=== PATIENT | male | born 1945 | race Caucasian/White ===

== ENCOUNTER 2020-12-01 03:31 | Inpatient (IN) ==
[2020-12-01 04:51] LABS: Albumin Level 3.8 gm/dl (3.4-5.0); Calcium 9.6 mg/dl (8.5-10.1); Creatinine Clr Calc Pharmacy 71.5 ml/min; Est GFR (African American) 79.5; Est GFR (Non-African American) 68.6; Potassium 3.6 mmol/L (3.5-5.1)
[2020-12-01 04:55] LABS: Partial Thromboplastin Time 26.9 Seconds (21.0-31.0); Prothrombin Time 9.8 Seconds (9.0-12.0)
[2020-12-01 04:59] LABS: Albumin Globulin Ratio 1.1 (0.9-2); Bilirubin,Total 0.9 mg/dl (0.2-1); Globulin 3.6 gm/dl (2.5-4.0); Total Protein 7.4 gm/dl (6.4-8.2); Troponin I 0.067 ng/ml (0-0.045)
[2020-12-01 05:03] LABS: Basophils # (auto) 0.02 K/uL (0-0.2); Basophils % (auto) 0.4 %; Eosinophils # (auto) 0.08 K/uL (0-0.5); Eosinophils % (auto) 1.4 %; Hemoglobin 16.2 g/dL (14.0-18.0); Immature Granulocytes # (auto) 0.11 K/uL (0.00-0.02); Immature Granulocytes % (auto) 1.9 %; Lymphocytes # (auto) 1.11 K/uL (1.2-3.4); Lymphocytes % (auto) 19.6 %; Mean Corpuscular Hemoglobin 29.2 pg (25-34); Mean Corpuscular Hgb Conc 34.5 g/dL (32-36); Mean Corpuscular Volume 84.8 fL (80-100); Mean Platelet Volume 12.2 fL (7.4-10.4); Monocytes # (auto) 0.46 K/uL (0.11-0.59); Monocytes % (auto) 8.1 %; Neutrophils # (auto) 3.89 K/uL (1.4-6.5); Neutrophils % (auto) 68.6 %; Platelet Count 101 K/uL (130-400); Platelet Estimate Decreased (Normal); Polychromasia 1+; RDW Coefficient of Variation 12.9 % (11.5-14.5); RDW Standard Deviation 39.9 fL (36.4-46.3); Red Blood Count 5.54 M/uL (4.7-6.1); White Blood Count 5.67 K/uL (4.8-10.8)
--- NOTE | 2020-12-01 06:32 | Emergency Department Note ---
Impression & Plan Atrial fibrillation with rapid ventricular response, Elevated troponin ED Provider Note NAME: VIRGINIE LU AGE: 75 SEX: M ARRIVES VIA: Walk-In INFORMANT: Patient ED PROVIDER(S): Noemi Gorman DO CHIEF COMPLAINT: Palpitation PLAN: Disposition: Admitted to the [facility] service Condition: Good MEDICAL DECISION MAKING: This is a 75-year-old male patient who presents to the emergency department after having an episode of palpitations/tachycardia that would not resolve. Patient describes very similar episode 2 to 3 months ago that resolved on its own. Upon presentation to the emergency department, patient's heart rate was 121. It broke on its own to 65. However, the patient does have an elevated troponin. I discussed the case with Dr. Carlson and he will evaluate the patient for further inpatient care. Triage Nursing notes reviewed and agree them. Additional history obtained from the patient's who is at the bedside Prior medical records reviewed in Epic Vital Signs: reviewed and remarkable for tachycardia Differential diagnosis: Electrolyte abnormality, thyroid dysfunction, STEMI, cardiac dysrhythmia Diagnostics interpreted by me: ECG: Atrial fibrillation at a rate of 121 with rapid ventricular response. T wave inversion in the inferior leads and lateral leads with no obvious ectopy. I was able to obtain documentation in the [facility] system stating that the patient has a longstanding history of T wave inversion. We have no previous EKGs here at [facility]. Repeat EKG after the rapid A. fib broke: Normal sinus rhythm at a rate of 65 with persistent T wave inversion in leads V2, V3, V4, V5, V6, I and aVL Cardiac Monitoring: Normal sinus rhythm at a rate of 64 Laboratory studies: See below Imaging studies: As per my interpretation Portable chest x-ray: No acute pulmonary infiltrates or pleural effusions; no cardiomegaly HPI: 75/M arrives for evaluation of arrhythmia. Patient describes around 10 PM this evening he got up to urinate and could feel his heart beating rapidly. He then tried to go back to bed but continued to get up very frequently to urinate. The patient had a very similar episode 2 to 3 months ago around 11 PM at night where he also had frequent urination and felt his heart beating fast. That episode previously resolved on its own. This episode was not resolving. He had no associated chest pain, diaphoresis or dizziness. ROS: See above HPI for pertinent positives & negatives. A total of 10 systems reviewed and were otherwise negative. PAST MEDICAL HISTORY:Non-Hodgkin's lymphoma in remission; hypertension PAST SURGICAL HISTORY:See Below FAMILY HISTORY:See Below SOCIAL HISTORY:Occasionally drinks alcohol; lives with his HOME MEDICATIONS:See list ALLERGIES:See list VITALS:See Below PHYSICAL EXAMINATION: HEENT: Head - normocephalic and atraumatic Pupils are equal, round, and reactive to light. Extraocular eye muscles are intact, and sclera are anicteric. Nose - moist nasal mucosa without discharge. Mouth - moist buccal mucosa. Oropharynx is nonerythematous and there is no tonsillar exudate or edema noted. Neck: Supple; no JVD, nuchal rigidity, cervical lymphadenopathy, or auscultated bruits. Heart: Regular rate and rhythm. There is a normal S1 and S2 with no murmurs, clicks, or gallops appreciated. Lungs: Clear to auscultation bilaterally with no wheezes, rales, or rhonchi. Abdomen: Soft, completely nontender, nondistended, with good bowel sounds. There are no palpable pulsatile masses or hepatosplenomegaly. There is no guarding, rigidity, or rebound noted. Extremities: No evidence of cyanosis, clubbing, or edema. There are easily palpable peripheral pulses. Skin: warm and dry with good turgor and no rashes. ED COURSE: Times/Reassessments: 0415: Patient was evaluated in room C3. A complete history and physical was performed. An order was placed for continuous cardiac monitoring. The patient was in a atrial fibrillation with a rapid ventricular response at a rate of 124. A twelve-lead EKG was obtained. IV lock was initiated and labs were drawn as above. Patient had a chest x-ray as described above. I did obtain records from the [facility] system. The patient's A. fib broke on its own. 0550: I reevaluated the patient at this time. He remains comfortable. He remains in a normal sinus rhythm. I reviewed the results of the labs with him along with the chest x-ray results. I explained to the patient that he does have an elevated troponin and will require further inpatient care. Discussed the case with the [facility] hospitalist. Noemi Gorman DO Past Med/Surg History Medical History (Updated 12/01/20 @ 18:51 by Noemi Gorman DO) Hx of lymphoma, non-Hodgkins Hyperlipidemia Hypertension Osteoarthritis Peripheral neuropathy Surgical History H/O hand surgery RT HAND RING FINGER TRIGGER RELEASE History of eye surgery LEFT (MACULAR PUCKER REPAIR) History of left cataract surgery Ozan teeth removed Family History Other No significant family history Social History Smoking Status: Light tobacco smoker Cigarettes Per Day: 1-2 CIGARS PER WEEK; Second Hand Exposure: Yes (socially); Do You Dip or Chew Tobacco: No; Tobacco Cessation Education Requested by Patient: No Hx Alcohol Use: Yes Alcohol type: beer, wine and hard liquor Hx Substance Use: No Preferred Language: Danish Communication Ability: Effective Stove Mechanic Required: No Beliefs That Will Affect Care: None Current Living Situation: Spouse Other Information That Helps Us Care for You: No Feels Safe at Home: Yes Safety Concerns: Feels Safe At This Time Assistive Devices: Glasses Allergies Allergies Allergy/AdvReac Type Severity Reaction Status Date / Time rituximab [From Rituxan] Allergy Intermediate "muscles Verified 12/01/20 03:46 got tight" Home Meds Home Medications Medication Instructions Recorded Confirmed Centrum Silver Men 1 tab PO QAM 03/27/20 12/01/20 Imbruvica 280 mg PO QAM 03/27/20 12/01/20 cholecalciferol (vitamin D3) 50 mcg PO QAM 03/27/20 12/01/20 [Vitamin D3] lisinopril-hydrochlorothiazide 1 tab PO QAM 03/27/20 12/01/20 simvastatin 20 mg PO HS 03/27/20 12/01/20 celecoxib [Celebrex] 200 mg PO QAM 04/30/20 12/01/20 Results & Data (ED) Vital Signs Vital Signs - 24 hr 12/01/20 03:35 12/01/20 03:45 12/01/20 04:15 Temperature 36.0 C L Temperature Source Oral Pulse Rate 120 H 57 L Pulse Rate from SpO2 Sensor 57 L Respiratory Rate 16 25 H Blood Pressure 208/119 H 156/76 H Blood Pressure Mean 148 102 Pulse Oximetry 96 95 Oxygen Delivery Method Room Air Room Air Sepsis Recent Fever Within 48 Hours No Sepsis New/Unexplained Change in Mental Status No Sepsis Action Taken by Nursing No Action Required 12/01/20 06:30 12/01/20 07:00 Temperature Temperature Source Pulse Rate 55 L 58 L Pulse Rate from SpO2 Sensor 54 L 58 L Respiratory Rate 14 13 Blood Pressure 158/76 H 175/90 H Blood Pressure Mean 103 118 Pulse Oximetry 93 96 Oxygen Delivery Method Sepsis Recent Fever Within 48 Hours Sepsis New/Unexplained Change in Mental Status Sepsis Action Taken by Nursing Laboratory Data Result diagrams: 12/01/20 04:00 12/01/20 04:00 Lab Results 12/01/20 12/01/20 12/01/20 Range/Units 04:00 04:00 04:00 WBC 5.67 (4.8-10.8) K/uL RBC 5.54 (4.7-6.1) M/uL Hgb 16.2 (14.0-18.0) g/dL Hct 47.0 (42-52) % MCV 84.8 (80-100) fL MCH 29.2 (25-34) pg MCHC 34.5 (32-36) g/dL RDW Std Deviation 39.9 (36.4-46.3) fL RDW Coeff of Michael 12.9 (11.5-14.5) % Plt Count 101 L (130-400) K/uL MPV 12.2 H (7.4-10.4) fL Immature Gran % (Auto) 1.9 % Neut % (Auto) 68.6 % Lymph % (Auto) 19.6 % [place] % (Auto) 8.1 % Eos % (Auto) 1.4 % Baso % (Auto) 0.4 % Neut # (Auto) 3.89 (1.4-6.5) K/uL Lymph # (Auto) 1.11 L (1.2-3.4) K/uL [place] # (Auto) 0.46 (0.11-0.59) K/uL Eos # (Auto) 0.08 (0-0.5) K/uL Baso # (Auto) 0.02 (0-0.2) K/uL Immature Gran # (Auto) 0.11 H (0.00-0.02) K/uL Platelet Estimate Decreased L (Normal) Polychromasia 1+ PT 9.8 (9.0-12.0) Seconds INR 1.0 (0.9-1.1) APTT 26.9 (21.0-31.0) Seconds PTT Ratio 1.0 Sodium 143 (136-145) mmol/L Potassium 3.6 (3.5-5.1) mmol/L Chloride 110 H (98-107) mmol/L Carbon Dioxide 25 (21-32) mmol/L Anion Gap 8.0 (3-11) BUN 16 (7-18) mg/dl Creatinine 1.05 (0.6-1.4) mg/dl Est Cr Clr Drug Dosing 71.5 ml/min Est GFR ( Amer) 79.5 Est GFR (Non-Af Amer) 68.6 BUN/Creatinine Ratio 15.0 (10-20) Glucose 119 H (70-99) mg/dl Calcium 9.6 (8.5-10.1) mg/dl Total Bilirubin 0.9 (0.2-1) mg/dl AST 20 (15-37) U/L ALT 28 (12-78) U/L Alkaline Phosphatase 105 (45-117) U/L Troponin I 0.067 H* (0-0.045) ng/ml Total Protein 7.4 (6.4-8.2) gm/dl Albumin 3.8 (3.4-5.0) gm/dl Globulin 3.6 (2.5-4.0) gm/dl Albumin/Globulin Ratio 1.1 (0.9-2) COVID-19 Eval Order SARS-CoV-2, RNA, NAAT (NEGATIVE) 12/01/20 12/01/20 Range/Units 05:55 05:55 WBC (4.8-10.8) K/uL RBC (4.7-6.1) M/uL Hgb (14.0-18.0) g/dL Hct (42-52) % MCV (80-100) fL MCH (25-34) pg MCHC (32-36) g/dL RDW Std Deviation (36.4-46.3) fL RDW Coeff of Michael (11.5-14.5) % Plt Count (130-400) K/uL MPV (7.4-10.4) fL Immature Gran % (Auto) % Neut % (Auto) % Lymph % (Auto) % [place] % (Auto) % Eos % (Auto) % Baso % (Auto) % Neut # (Auto) (1.4-6.5) K/uL Lymph # (Auto) (1.2-3.4) K/uL [place] # (Auto) (0.11-0.59) K/uL Eos # (Auto) (0-0.5) K/uL Baso # (Auto) (0-0.2) K/uL Immature Gran # (Auto) (0.00-0.02) K/uL Platelet Estimate (Normal) Polychromasia PT (9.0-12.0) Seconds INR (0.9-1.1) APTT (21.0-31.0) Seconds PTT Ratio Sodium (136-145) mmol/L Potassium (3.5-5.1) mmol/L Chloride (98-107) mmol/L Carbon Dioxide (21-32) mmol/L Anion Gap (3-11) BUN (7-18) mg/dl Creatinine (0.6-1.4) mg/dl Est Cr Clr Drug Dosing ml/min Est GFR ( Amer) Est GFR (Non-Af Amer) BUN/Creatinine Ratio (10-20) Glucose (70-99) mg/dl Calcium (8.5-10.1) mg/dl Total Bilirubin (0.2-1) mg/dl AST (15-37) U/L ALT (12-78) U/L Alkaline Phosphatase (45-117) U/L Troponin I (0-0.045) ng/ml Total Protein (6.4-8.2) gm/dl Albumin (3.4-5.0) gm/dl Globulin (2.5-4.0) gm/dl Albumin/Globulin Ratio (0.9-2) COVID-19 Eval Order Covid19 [facility] SARS-CoV-2, RNA, NAAT NEGATIVE (NEGATIVE) Administered Medications Amlodipine Besylate (Amlodipine Besylate 5 Mg Tab) 5 mg PO QAM PARAMJIT Stop: 12/31/20 16:29 Last Admin: 12/01/20 18:06 Dose: 5 mg Documented by: [id number] Apixaban (Apixaban 5 Mg Tablet) 5 mg PO BID [facility] Stop: 12/31/20 13:59 Last Admin: 12/01/20 14:35 Dose: 5 mg Documented by: [id number] Lisinopril/HCTZ (Lisinopril/Hctz 20/25mg 1 Tab) 1 tab PO [place] Stop: 12/31/20 08:59 Last Admin: 12/01/20 09:57 Dose: 1 tab Documented by: [id number] Hydralazine HCl (Hydralazine Hcl 20 Mg/Ml Vial) 5 mg IV Q4H PRN PRN Reason: for SBP>170 Stop: 12/31/20 16:15 Last Admin: 12/01/20 16:43 Dose: 5 mg Documented by: [id number] Metoprolol Succinate (Metoprolol Succ 25mg Ext Rel Tab) 25 mg PO [place] Stop: 12/31/20 12:29 Last Admin: 12/01/20 13:11 Dose: Not Given Documented by: [id number] Multivitamins/Minerals (Cerovite Adv Formula Tab) 1 tab PO [facility] Stop: 12/31/20 08:59 Last Admin: 12/01/20 09:57 Dose: 1 tab Documented by: [id number] Vitamin D (Cholecalciferol 1,000 Units 25 Mcg Tab) 2,000 units PO [facility] Stop: 12/31/20 08:59 Last Admin: 12/01/20 09:57 Dose: 2,000 units Documented by: [id number] Discontinued Medications Heparin Sodium/Dextrose (Heparin Sodium/Dextrose) 25,000 units in 500 mls @ 20 mls/hr IV .Q24H [facility]; Protocol Stop: 12/31/20 08:29 Last Titration: 12/01/20 12:30 Dose: 0 units/hr, 0 mls/hr Documented by: [id number] Cosigned by: [id number] Admin: 12/01/20 08:46 Dose: 1,000 units/hr, 20 mls/hr Documented by: [id number] Cosigned by: [id number] Influenza Virus Vaccine (Influenza Vaccine High Dose 65+ 0.7 Ml Syr) 0.7 ml IM .ONCE ONE Stop: 12/01/20 14:31 Last Admin: 12/01/20 14:39 Dose: Not Given Documented by: [id number] Miscellaneous (Ibrutinib [Imbruvica] 140 Mg: Order Awaiting Action) 1 ea N/A QS PARAMJIT Stop: 12/31/20 15:59 Last Admin: 12/01/20 15:44 Dose: Not Given Documented by: [id number] Pneumococcal Polyvalent Vaccine (Pneumococcal Polysaccharide Vaccine 25mcg/0.5ml Vial/Syr) 25 mcg IM .ONCE ONE Stop: 12/01/20 14:31 Last Admin: 12/01/20 14:39 Dose: Not Given Documented by: [id number] Potassium Chloride (Potassium Chloride Crtab 20 Meq Tabcr) 40 meq PO NOW STA Stop: 12/01/20 08:05 Last Admin: 12/01/20 08:46 Dose: 40 meq Documented by: [id number] Discharge Plan Visit Data Chief Complaint: Arrhythmia/Palpitations Stated Complaint: HEART FLUTTER ED Provider: Noemi Gorman Discharge Problem: Atrial fibrillation with rapid ventricular response, Elevated troponin Patient Disposition: Admitted As Inpatient Discharge Instructions Interventions: ED Discharge Assessment Last Done: 12/01/20 07:24
[2020-12-01] MEDS ORDERED: METOPROLOL TARTRATE 1 MG/ML VIAL IV PRN (07:57)
[2020-12-01] MEDS ORDERED: NITROGLYCERIN SL 0.4 MG/TAB TAB SL PRN (07:57)
[2020-12-01] MEDS ORDERED: ACETAMINOPHEN 325 MG TAB PO PRN (07:57)
[2020-12-01] MEDS ORDERED: POTASSIUM CHLORIDE CRTAB 20 MEQ TABCR PO STA (08:04)
[2020-12-01] MEDS ORDERED: HEPARIN SODIUM/DEXTROSE 25,000 UNITS/500 ML BAG IV SCH (08:30)
[2020-12-01] MEDS ORDERED: Heparin IV Adult Wt-Based Low-Dose *NO* Bolus Protocol IV SCH (08:30)
--- NOTE | 2020-12-01 08:44 | XRay Report ---
XR chest 1V portable HISTORY: Atypical Chest Pain COMPARISON: Chest 12/14/2014. FINDINGS: The lungs are clear. Cardiac silhouette is normal in size. No pleural effusions. No pneumot horax. IMPRESSION: No acute process. ACT 112: Negative or not required by law. Electronically signed by: Too Whitney M.D. 12/01/2020 8:42 AM
[2020-12-01] MEDS: CHOLECALCIFEROL 1,000 UNITS 25 MCG TAB PO SCH (09:57)
[2020-12-01] MEDS: LISINOPRIL/HCTZ 20/25MG 1 TAB PO SCH (09:57)
[2020-12-01] MEDS: CEROVITE ADV FORMULA TAB PO SCH (09:57)
--- NOTE | 2020-12-01 10:11 | History and Physical Report ---
DATE OF ADMISSION: 12/01/2020 CHIEF COMPLAINT: Rapid AFib. HISTORY OF PRESENT ILLNESS: This is a 75-year-old male with past medical history significant for hyperlipidemia, hypertension, prolonged QT syndrome, mantle cell lymphoma in remission, presents with palpitations. The patient says yesterday he went with some of his friends for fishing plan and when he got home at 10:00 pm when he was watching TV, felt funny feeling in the chest and palpitations. It happened about one month ago. At that time, it lasted for 1 hour and resolved itself after drinking Gatorade. He tried to do the same thing last night, but it did not resolve. He tried to go to bed at 12:00, but it was not getting better, still feeling the same, so he came to the ER and found to have rapid atrial fibrillation. During all this process, he never had any chest pain or shortness of breath. Denies any cough, fever or chills. No headache, no blurred vision, no earache, no runny nose, no sore throat, no nausea, no abdominal pain. Normal bowel and bladder movements. Denies any hematuria. Denies any bloody stools or black stools. No swelling in the legs, no rash. The patient states he is active. 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 He is currently converted to sinus rhythm. ALLERGIES: RITUXIMAB. PAST MEDICAL HISTORY: As mentioned above. PAST SURGICAL HISTORY: Stress echo. MEDICATIONS: Currently, the patient is on celecoxib 200 mg p.o. a.m., Centrum Silver 1 tablet p.o. a.m., vitamin D 50 mcg p.o. a.m., Imbruvica 280 mg p.o. a.m., lisinopril/hydrochlorothiazide 20/25 mg 1 tablet daily. FAMILY HISTORY: Significant for father had Alzheimer disease. Mother has hypertension, diabetes. Maternal grandmother had cancer, paternal grandfather has heart disorder. SOCIAL HISTORY: , cigars once or twice a week. Alcohol 1-3 drinks a week. No drug use. REVIEW OF SYMPTOMS: As per HPI. Rest of review of symptoms negative. PHYSICAL EXAMINATION: GENERAL: The patient is moderate build, not in acute distress. VITAL SIGNS: Temperature 36, pulse 100 respiratory rate 20s, blood pressure 156/76, oxygen 95% on room air. HEENT: Pupils equal, round, reactive to light. Oral mucosa moist. NECK: No JVD. No neck masses. CARDIOVASCULAR: S1, S2 heard, regular rate and rhythm, no murmur, no gallop. RESPIRATORY SYSTEM: Normal AP diameter. No accessory muscle use. No wheezing, no crackles. ABDOMEN: Soft, bowel sounds present, nontender. No distention. CENTRAL NERVOUS SYSTEM: Cranial nerves II-XII grossly intact. Nonfocal. EXTREMITIES: No edema, no erythema. LABORATORY DATA: WBC 5.6, hemoglobin 16.2, hematocrit 47, platelets 101, PT 10.8, INR 1, APTT 26.9. Sodium 143, potassium 3.6, chloride 110, bicarbonate 25, BUN 16, creatinine 1.05, serum glucose 119, calcium 9.6, total bilirubin 0.9, AST 20, ALT 28, alkaline phosphatase 105. Troponin I 0.06. SARS-CoV-2 negative. Chest x-ray, no acute findings. EKG: Initial EKG show rapid AFib with rate of 121, moderate LVH criteria Nonspecific ST-T abnormalities. Repeat EKG shows normal sinus rhythm, rate of 65, LVH. QTC at 484, T-wave inversions in lateral leads. ASSESSMENT AND PLAN: This is a 75-year-old male who presents with rapid atrial fibrillation. 1. Rapid atrial fibrillation, new onset. Prior episode 1 month ago which resolved on its own. Currently converted to sinus rhythm. T wave inversions in lateral leads seems to be chronic. We will place him on IV Lopressor p.r.n. and low dose IV heparin. Serial enzymes and echocardiogram. We will keep him n.p.o. until seen by Cardiology 2,.Mild elevation of troponin, could be demand ischemia, some EKG changes. We will follow serial enzymes. Started him on aspirin and we will check lipid profile. We will follow echocardiogram and await cardiac input. Monitor in the tele floor. 2. History of hypertension. Continue his lisinopril/hydrochlorothiazide. We will monitor blood pressure.Iv lopressor prn. 3. History of hyperlipidemia. Continue statin. 4. History of mantle cell lymphoma, seems to be in remission. Follows with Hematology/Oncology on Imbruvica. 5. Thrombocytopenia, seems to be chronic. We will follow. The platelets are 101. Follow the repeat labs. 6. History of prolonged QT syndrome. We will follow the EKGs, Avoid Qt prolonging drugs. 7. Deep venous thrombosis prophylaxis, on IV heparin. DISPOSITION: Closely monitor in tele floor. Level 1 full code. Expect discharge home and follow with family doctor and cardiology. Social service to help with discharge planning. JUAN CARLOS
--- NOTE | 2020-12-01 10:15 | Electrocardiogram Report ---
Test Reason : Blood Pressure : / mmHG Vent. Rate : 121 BPM Atrial Rate : 110 BPM P-R Int : 000 ms QRS Dur : 106 ms QT Int : 334 ms P-R-T Axes : 000 -03 181 degrees QTc Int : 474 ms Atrial fibrillation with rapid ventricular response Voltage criteria for left ventricular hypertrophy Abnormal ECG No previous ECGs available Confirmed by Tom Fragoso ([id number]) on 12/01/2020 10:15:25 AM Referred By: REFERRED SELF Confirmed By:Tom Fragoso
--- NOTE | 2020-12-01 10:16 | Electrocardiogram Report ---
Test Reason : Blood Pressure : / mmHG Vent. Rate : 065 BPM Atrial Rate : 065 BPM P-R Int : 160 ms QRS Dur : 108 ms QT Int : 466 ms P-R-T Axes : 051 -06 167 degrees QTc Int : 484 ms Normal sinus rhythm Left ventricular hypertrophy with repolarization abnormality Marked ST/T changes consider anterolateral ischemia Prolonged QT Abnormal ECG When compared with ECG of 01-DEC-2020 03:49, (unconfirmed) Sinus rhythm has replaced Atrial fibrillation Vent. rate has decreased BY 56 BPM Confirmed by Tom Fragoso ([id number]) on 12/01/2020 10:16:00 AM Referred By: REFERRED SELF Confirmed By:Tom Fragoso
[2020-12-01] MEDS: METOPROLOL SUCC 25MG EXT REL TAB PO SCH (13:11)
--- NOTE | 2020-12-01 13:26 | Cardiology Consultation ---
Date of Consultation December 01, 2020 Assessment & Plan (1) Atrial fibrillation with rapid ventricular response: (2) Elevated troponin: (3) HTN (hypertension): (4) Mantle cell lymphoma: (5) Thrombocytopenia: The pathophysiology and treatment options for atrial fibrillation were discussed with the patient at great lengths. He is converted to normal sinus rhythm spontaneously and currently feels great. I feel the most prudent course of action at this point will be started him on low-dose beta-ani and Eliquis anticoagulation. The pros, cons and alternatives were discussed with the patient and he is in agreement. Should he tolerate receiving his first doses that I believe he would be able to be discharged later today. My office will call to arrange follow-up as an outpatient. His troponin level is slightly elevated but this could easily be explained by his A. fib with RVR. No wall motion abnormalities on echocardiogram and no ischemic symptoms. We will obtain a third troponin and should to be trending down it would be okay to discharge from a cardiac standpoint. History of Present Illness Reason for Consultation: new onset afib Requesting Physician: Dr. Carlson Attending Physician: Ralph Benson MD History of Present Illness It was my pleasure to see Mr. Zheng in cardiac consultation today December 01, 2020. He is a very pleasant and active 75-year-old gentleman who presented to [facility] early in the a.m. of 12/01/2020 with complaints of palpitations. He states he was out with friends last night and then after coming home sitting in a chair watching television he felt his heart started and a skipped beats in his chest. Otherwise, he states that he felt fine and did not experience any chest pain, shortness of breath, lightheadedness, dizziness or syncope. He drank some Gatorade thinking he might be dehydrated and then try to go to bed. The palpitations persisted throughout the night and approximately 3 AM he came to the emergency department for evaluation. Here he is found to be in atrial fibrillation with rapid ventricular response. He converted to sinus rhythm on his own in the emergency department. He was started on a heparin drip and admitted to telemetry. He is remained in sinus rhythm since presentation to telemetry and states that he currently feels great. 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 He is scheduled to go to [place] with friends flyfishing in a few weeks. Allergies Allergy/AdvReac Type Severity Reaction Status Date / Time rituximab [From Rituxan] Allergy Intermediate "muscles Verified 12/01/20 03:46 got tight" Home Medications Medication Instructions Recorded Confirmed Type Centrum Silver Men 1 tab PO QAM 03/27/20 12/01/20 History Imbruvica 280 mg PO QAM 03/27/20 12/01/20 History cholecalciferol (vitamin D3) 50 mcg PO QAM 03/27/20 12/01/20 History [Vitamin D3] lisinopril-hydrochlorothiazide 1 tab PO QAM 03/27/20 12/01/20 History simvastatin 20 mg PO HS 03/27/20 12/01/20 History celecoxib [Celebrex] 200 mg PO QAM 04/30/20 12/01/20 History Patient History Medical History (Updated 12/01/20 @ 13:23 by Tremayne Jiang DO) Hx of lymphoma, non-Hodgkins Hyperlipidemia Hypertension Osteoarthritis Peripheral neuropathy Surgical History H/O hand surgery RT HAND RING FINGER TRIGGER RELEASE History of eye surgery LEFT (MACULAR PUCKER REPAIR) History of left cataract surgery [place] teeth removed Family History Other No significant family history Social History Smoking Status: Light tobacco smoker Cigarettes Per Day: 1-2 CIGARS PER WEEK; Second Hand Exposure: Yes (socially); Do You Dip or Chew Tobacco: No; Tobacco Cessation Education Requested by Patient: No Hx Alcohol Use: Yes Alcohol type: beer, wine and hard liquor Hx Substance Use: No Preferred Language: Pakistani Communication Ability: Effective Support Representative Required: No Beliefs That Will Affect Care: None Current Living Situation: Spouse Other Information That Helps Us Care for You: No Feels Safe at Home: Yes Safety Concerns: Feels Safe At This Time Assistive Devices: Glasses Review of Systems Review of Systems: All systems reviewed & are unremarkable except as noted in HPI & below Physical Exam Physical Exam: General: Awake, alert and oriented x 3. No acute distress. HEENT: Normocephalic, atraumatic. Pupils equal, round and reactive to light and accommodation. Extraocular muscles are intact. Anicteric sclera. Moist mucous membranes. Neck: No JVD. No bruit. Cardiovascular: Regular. Positive S-4. Normal S-1 and S-2. No S-3. 3/6 holosystolic ejection murmur, left sternal border, mid-clavicular line with radiation to the axilla. No rubs. Pulmonary: Clear to auscultation bilaterally. No rales, rhonchi, or wheezing. Abdomen: Bowel sounds x 4, soft. No rebound, guarding or tenderness. No organomegaly. Extremities: No clubbing, cyanosis or edema. +2 pedal pulses bilaterally. Skin: Warm and dry. Results & Data ([facility]) Vital Signs (Past 12 Hours) Vital Signs Temp Pulse Pulse Resp BP BP BP 12/01/20 11:20 36.5 C 56 L 18 153/69 H 12/01/20 08:30 54 L 12/01/20 07:58 36.4 C L 62 20 187/75 H 12/01/20 07:00 58 L 13 175/90 H 12/01/20 06:30 55 L 14 158/76 H 12/01/20 04:15 57 L 25 H 156/76 H 12/01/20 03:35 36.0 C L 120 H 16 208/119 H Pulse Ox 12/01/20 11:20 94 12/01/20 08:30 12/01/20 07:58 97 12/01/20 07:00 96 12/01/20 06:30 93 12/01/20 04:15 95 12/01/20 03:35 96
[2020-12-01] MEDS ORDERED: INFLUENZA VACCINE HIGH DOSE 65+ 0.7 ML SYR IM ONE (14:30)
[2020-12-01] MEDS ORDERED: PNEUMOCOCCAL Polysaccharide Vaccine 25mcg/0.5mL vial/Syr IM ONE (14:30)
[2020-12-01] MEDS: APIXABAN 5 MG TABLET PO SCH ×2 (14:35→21:00)
[2020-12-01 16:15] LABS: Partial Thromboplastin Ratio 1.1; Partial Thromboplastin Time 28.2 Seconds (21.0-31.0)
[2020-12-01] MEDS ORDERED: hydrALAZINE HCL 20 MG/ML VIAL IV PRN (16:16)
[2020-12-01] MEDS ORDERED: amLODIPine BESYLATE 5 MG TAB PO SCH (16:30)
--- NOTE | 2020-12-01 16:58 | Hospitalist Progress Note ---
Date of Service December 01, 2020 Assessment & Plan Admission and Anticipated Discharge Date Admission Date: December 01, 2020 Subjective Patient admitted early this morning, for palpitations/A. fib with RVR. Patient converted to sinus rhythm in the ED. Currently sitting up in the chair, in no acute distress. He was started on IV heparin, troponin mildly elevated likely secondary to A. fib. Currently he is alert and oriented and answering questions appropriately, has no palpitations, no chest pain, or shortness of breath. He says that he feels well. Heart sounds are regular, lung sounds clear to auscultation bilaterally, without any wheezing rhonchi or crackles. Abdomen soft, nontender, nondistended. No lower extremity edema. Patient moves all extremities spontaneously. He was seen by cardiology, and echocardiogram was obtained. Started on Eliquis and metoprolol for heart rate control. Patient was found hypertensive however in the afternoon, will titrate medications for BP and will continue to closely monitor. Manpreet Benson MD Results & Data Results & Data ([facility]) Vital Signs (Past 12 Hours) Vital Signs Temp Pulse Pulse Resp BP BP BP 12/01/20 15:51 36.6 C 57 L 18 182/87 H 12/01/20 11:20 36.5 C 56 L 18 153/69 H 12/01/20 08:30 54 L 12/01/20 07:58 36.4 C L 62 20 187/75 H 12/01/20 07:00 58 L 13 175/90 H 12/01/20 06:30 55 L 14 158/76 H Pulse Ox 12/01/20 15:51 96 12/01/20 11:20 94 12/01/20 08:30 12/01/20 07:58 97 12/01/20 07:00 96 12/01/20 06:30 93
[2020-12-01] MEDS ORDERED: SIMVASTATIN 20 MG TAB PO SCH (21:00)
[2020-12-02 06:16] LABS: Hematocrit (blood only) 45.5 % (42-52); Hemoglobin 15.6 g/dL (14.0-18.0); Mean Corpuscular Hemoglobin 29.5 pg (25-34); Mean Corpuscular Hgb Conc 34.3 g/dL (32-36); Mean Corpuscular Volume 86.2 fL (80-100); RDW Coefficient of Variation 13.2 % (11.5-14.5); RDW Standard Deviation 41.2 fL (36.4-46.3); Red Blood Count 5.28 M/uL (4.7-6.1); White Blood Count 5.29 K/uL (4.8-10.8)
[2020-12-02 06:19] LABS: Basophils # (auto) 0.03 K/uL (0-0.2); Basophils % (auto) 0.6 %; Eosinophils # (auto) 0.08 K/uL (0-0.5); Eosinophils % (auto) 1.5 %; Immature Granulocytes # (auto) 0.05 K/uL (0.00-0.02); Immature Granulocytes % (auto) 0.9 %; Lymphocytes % (auto) 20.8 %; Mean Platelet Volume 11.8 fL (7.4-10.4); Monocytes # (auto) 0.64 K/uL (0.11-0.59); Monocytes % (auto) 12.1 %; Neutrophils # (auto) 3.39 K/uL (1.4-6.5); Neutrophils % (auto) 64.1 %; Platelet Count 97 K/uL (130-400)
[2020-12-02 06:39] LABS: BUN Creatinine Ratio 17.6 (10-20); Calcium 8.8 mg/dl (8.5-10.1); Creatinine Clr Calc Pharmacy 69.6 ml/min; Est GFR (African American) 77.7; Est GFR (Non-African American) 67.1; Magnesium 2.3 mg/dl (1.8-2.4); Potassium 3.7 mmol/L (3.5-5.1)
[2020-12-02] MEDS: APIXABAN 5 MG TABLET PO SCH (08:30)
[2020-12-02] MEDS: METOPROLOL SUCC 25MG EXT REL TAB PO SCH (08:30)
[2020-12-02] MEDS: LISINOPRIL/HCTZ 20/25MG 1 TAB PO SCH (08:30)
[2020-12-02] MEDS: CHOLECALCIFEROL 1,000 UNITS 25 MCG TAB PO SCH (08:34)
[2020-12-02] MEDS: CEROVITE ADV FORMULA TAB PO SCH (08:36)
[2020-12-02] MEDS ORDERED: IBRUTINIB 140 MG CAPSULE PO SCH (09:00)
[2020-12-02] MEDS ORDERED: POTASSIUM CHLORIDE CRTAB 20 MEQ TABCR PO STA (10:13)
--- NOTE | 2020-12-02 10:13 | Hospitalist Progress Note ---
Date of Service December 02, 2020 Assessment & Plan (1) Atrial fibrillation with rapid ventricular response: (2) Elevated troponin: This is a 75-year-old male who presents with rapid atrial fibrillation. 1. Rapid atrial fibrillation, new onset. Prior episode of palpitations 1 month ago which resolved on its own. Currently in normal sinus rhythm, converted in the ED. T wave inversions in lateral leads seems to be chronic. Placed on IV Lopressor p.r.n. and started on IV heparin, now on Eliquis. Serial troponins obtained, peaked at 0.115 Echocardiogram obtained -normal LV chamber size with moderate concentric LVH. Normal LV systolic function, EF 55 to 60%. No segmental wall motion abnormalities, except mild hypokinetic apex. Grade 2 diastolic dysfunction. Severe left atrial enlargement Cardiology consulted Plan to discharge on metoprolol, Eliquis and increased dose of lisinopril to 40 mg daily. Plan for cardiology follow-up and stress test as outpatient. 2. Mild elevation of troponin, likely secondary to A. fib with RVR - demand ischemia. serial enzymes obtained and cardiology following. Started pt on aspirin and we will check lipid profile. Monitor in the tele floor. 3. History of hypertension. Continued his lisinopril/hydrochlorothiazide. Blood pressure elevated yesterday, therefore lisinopril increased to 40 mg daily, we will also discharged on metoprolol. 4. History of hyperlipidemia. Continue statin. 5. History of mantle cell lymphoma, seems to be in remission. Follows with Hematology/Oncology on Imbruvica. 6. Thrombocytopenia, seems to be chronic. We will follow. The platelets are 101. repeat labs stable 7. History of prolonged QT syndrome. We will follow the EKGs, Avoid Qt prolonging drugs. DVT ppx, on IV heparin initially, now on Eliquis DISPOSITION: Plan to discharge home and follow with family doctor and cardiology. Admission and Anticipated Discharge Date Admission Date: December 01, 2020 Subjective Patient seen in follow-up of palpitations/A. fib with RVR Patient converted into sinus rhythm in the ED Currently feeling well, Eliquis started yesterday, however patient was hypertensive yesterday as well and required hydralazine and amlodipine Currently on metoprolol and Eliquis, heart rate and blood pressure acceptable He denies any chest pain, palpitations, shortness of breath, dizziness, lightheadedness He has been ambulating and is eager to go home Cardiology consulted and following Review of Systems Review of Systems: All systems reviewed & are unremarkable except as noted in HPI & below Constitutional: no fever and no chills Respiratory: no cough and no dyspnea Cardiovascular: no chest pain and no palpitations Gastrointestinal: no abdominal pain, no nausea and no vomiting Physical Exam Physical Exam: GENERAL: The patient is of moderate build, not in any distress. HEENT: NC/AT, Pupils equal, round, reactive to light. Oral mucosa moist. NECK: No JVD. No neck masses. CARDIOVASCULAR: S1, S2 heard, regular rate and rhythm, no murmur, no gallop. No lower extremity edema RESPIRATORY SYSTEM: Normal AP diameter. No accessory muscle use. No wheezing, no crackles. ABDOMEN: Soft, bowel sounds present, nontender. No distention. NEURO: Alert and oriented x3, no facial asymmetry, speech fluent, moves all 4 extremities spontaneously and without difficulty EXTREMITIES: No edema, no erythema. Results & Data Results & Data ([facility]) Vital Signs (Past 12 Hours) Vital Signs Temp Pulse Pulse Resp BP Pulse Ox 12/02/20 07:56 54 L 12/02/20 07:03 36.6 C 54 L 20 156/81 H 95 12/02/20 03:20 36.9 C 55 L 17 149/72 H 94 12/02/20 00:05 55 L 12/01/20 23:25 36.6 C 57 L 18 157/71 H 94 Laboratory Results 12/02/20 12/02/20 12/01/20 Range/Units 05:25 05:25 15:37 WBC 5.29 (4.8-10.8) K/uL RBC 5.28 (4.7-6.1) M/uL Hgb 15.6 (14.0-18.0) g/dL Hct 45.5 (42-52) % MCV 86.2 (80-100) fL MCH 29.5 (25-34) pg MCHC 34.3 (32-36) g/dL RDW Std Deviation 41.2 (36.4-46.3) fL RDW Coeff of Michael 13.2 (11.5-14.5) % Plt Count 97 L (130-400) K/uL MPV 11.8 H (7.4-10.4) fL Immature Gran % (Auto) 0.9 % Neut % (Auto) 64.1 % Lymph % (Auto) 20.8 % [place] % (Auto) 12.1 % Eos % (Auto) 1.5 % Baso % (Auto) 0.6 % Neut # (Auto) 3.39 (1.4-6.5) K/uL Lymph # (Auto) 1.10 L (1.2-3.4) K/uL [place] # (Auto) 0.64 H (0.11-0.59) K/uL Eos # (Auto) 0.08 (0-0.5) K/uL Baso # (Auto) 0.03 (0-0.2) K/uL Immature Gran # (Auto) 0.05 H (0.00-0.02) K/uL APTT 28.2 (21.0-31.0) Seconds PTT Ratio 1.1 Sodium 140 (136-145) mmol/L Potassium 3.7 (3.5-5.1) mmol/L Chloride 108 H (98-107) mmol/L Carbon Dioxide 27 (21-32) mmol/L Anion Gap 5.0 (3-11) BUN 19 H (7-18) mg/dl Creatinine 1.07 (0.6-1.4) mg/dl Est Cr Clr Drug Dosing 69.6 ml/min Est GFR ( Amer) 77.7 Est GFR (Non-Af Amer) 67.1 BUN/Creatinine Ratio 17.6 (10-20) Glucose 112 H (70-99) mg/dl Calcium 8.8 (8.5-10.1) mg/dl Magnesium 2.3 (1.8-2.4) mg/dl Troponin I (0-0.045) ng/ml 12/01/20 12/01/20 Range/Units 15:37 10:28 WBC (4.8-10.8) K/uL RBC (4.7-6.1) M/uL Hgb (14.0-18.0) g/dL Hct (42-52) % MCV (80-100) fL MCH (25-34) pg MCHC (32-36) g/dL RDW Std Deviation (36.4-46.3) fL RDW Coeff of Michael (11.5-14.5) % Plt Count (130-400) K/uL MPV (7.4-10.4) fL Immature Gran % (Auto) % Neut % (Auto) % Lymph % (Auto) % [place] % (Auto) % Eos % (Auto) % Baso % (Auto) % Neut # (Auto) (1.4-6.5) K/uL Lymph # (Auto) (1.2-3.4) K/uL [place] # (Auto) (0.11-0.59) K/uL Eos # (Auto) (0-0.5) K/uL Baso # (Auto) (0-0.2) K/uL Immature Gran # (Auto) (0.00-0.02) K/uL APTT (21.0-31.0) Seconds PTT Ratio Sodium (136-145) mmol/L Potassium (3.5-5.1) mmol/L Chloride (98-107) mmol/L Carbon Dioxide (21-32) mmol/L Anion Gap (3-11) BUN (7-18) mg/dl Creatinine (0.6-1.4) mg/dl Est Cr Clr Drug Dosing ml/min Est GFR ( Amer) Est GFR (Non-Af Amer) BUN/Creatinine Ratio (10-20) Glucose (70-99) mg/dl Calcium (8.5-10.1) mg/dl Magnesium (1.8-2.4) mg/dl Troponin I 0.099 H* 0.115 H* (0-0.045) ng/ml Medications Administered Current Inpatient Medications Acetaminophen (Acetaminophen 325 Mg Tab) 650 mg PO Q4H PRN PRN Reason: Pain or Fever Stop: 12/31/20 07:56 Apixaban (Apixaban 5 Mg Tablet) 5 mg PO BID [facility] Stop: 12/31/20 13:59 Last Admin: 12/02/20 08:30 Dose: 5 mg Documented by: Lisinopril/HCTZ (Lisinopril/Hctz 20/25mg 1 Tab) 1 tab PO QAM [facility] Stop: 12/31/20 08:59 Last Admin: 12/02/20 08:30 Dose: 1 tab Documented by: Hydralazine HCl (Hydralazine Hcl 20 Mg/Ml Vial) 5 mg IV Q4H PRN PRN Reason: for SBP>170 Stop: 12/31/20 16:15 Last Admin: 12/01/20 16:43 Dose: 5 mg Documented by: Ibrutinib (Ibrutinib 140 Mg Capsule) 2 ea PO [facility] Stop: 01/01/21 08:59 Last Admin: 12/02/20 08:38 Dose: 2 ea Documented by: Metoprolol Succinate (Metoprolol Succ 25mg Ext Rel Tab) 25 mg PO [facility] Stop: 12/31/20 12:29 Last Admin: 12/02/20 08:30 Dose: 25 mg Documented by: Metoprolol Tartrate (Metoprolol Tartrate 1 Mg/Ml Vial) 2.5 mg IV Q4 PRN PRN Reason: Tachycardia Stop: 12/31/20 07:56 Multivitamins/Minerals (Cerovite Adv Formula Tab) 1 tab PO [facility] Stop: 12/31/20 08:59 Last Admin: 12/02/20 08:36 Dose: 1 tab Documented by: Nitroglycerin (Nitroglycerin Sl 0.4 Mg/Tab Tab) 0.4 mg SL UD PRN PRN Reason: Chest Pain Stop: 12/31/20 07:56 Simvastatin (Simvastatin 20 Mg Tab) 20 mg PO [facility] Stop: 12/31/20 20:59 Last Admin: 12/01/20 21:00 Dose: 20 mg Documented by: Vitamin D (Cholecalciferol 1,000 Units 25 Mcg Tab) 2,000 units PO [facility] Stop: 12/31/20 08:59 Last Admin: 12/02/20 08:34 Dose: 2,000 units Documented by:
--- NOTE | 2020-12-02 10:37 | Electrocardiogram Report ---
Test Reason : Blood Pressure : / mmHG Vent. Rate : 053 BPM Atrial Rate : 053 BPM P-R Int : 164 ms QRS Dur : 104 ms QT Int : 504 ms P-R-T Axes : 033 -03 171 degrees QTc Int : 472 ms Sinus bradycardia Left ventricular hypertrophy with repolarization abnormality marked ST/T changes c/w anterolateral ischemia Abnormal ECG When compared with ECG of 01-DEC-2020 03:58, No significant change was found Confirmed by Tom Fragoso ([id number]) on 12/02/2020 10:37:29 AM Referred By: REFERRED SELF Confirmed By:Tom Fragoso
[2020-12-02] MEDS ORDERED: lisinopril 20 MG TAB PO STA (11:07)
--- NOTE | 2020-12-02 13:30 | Cardiology Progress Note ---
Date of Service December 02, 2020 Assessment & Plan (1) Atrial fibrillation with rapid ventricular response: (2) Elevated troponin: (3) HTN (hypertension): (4) Mantle cell lymphoma: (5) Thrombocytopenia: The pathophysiology and treatment options for atrial fibrillation were discussed with the patient at great lengths. He is converted to normal sinus rhythm spontaneously and currently feels great. I feel the most prudent course of action at this point will be started him on low-dose beta-ani and Eliquis anticoagulation. The pros, cons and alternatives were discussed with the patient and he is in agreement. His troponin was slightly elevated but without ischemic symptoms. Echocardiogram showed most likely normal wall motion with questionable hypokinesis of the apex. Given these findings I believe ischemic evaluation is in order and after discussion with the patient he would prefer to undergo further testing as an outpatient. Okay to DC to home on current medications: Metoprolol 25 mg p.o. daily, Eliquis 5 mg p.o. twice daily, lisinopril 40 mg daily and HCTZ 25 mg daily My office will call to arrange exercise nuclear stress test this week along with close cardiac follow-up. Okay to DC patient to home. Admission and Anticipated Discharge Date Admission Date: December 01, 2020 Subjective Patient seen and examined, chart reviewed. Discharge held yesterday due to minimal troponin bump and uncontrolled hypertension. Overnight he states he continues to feel well. He has had not had any recurrences of the fluttering that he had with his episode of atrial fibrillation. Telemetry reviewed: Sinus bradycardia in the 50s. Review of Systems Review of Systems: All systems reviewed & are unremarkable except as noted in HPI & below Physical Exam Physical Exam: General: Awake, alert and oriented x 3. No acute distress. HEENT: Normocephalic, atraumatic. Pupils equal, round and reactive to light and accommodation. Extraocular muscles are intact. Anicteric sclera. Moist mucous membranes. Neck: No JVD. No bruit. Cardiovascular: Regular. Positive S-4. Normal S-1 and S-2. No S-3. 3/6 holosystolic ejection murmur, left sternal border, mid-clavicular line with radiation to the axilla. No rubs. Pulmonary: Clear to auscultation bilaterally. No rales, rhonchi, or wheezing. Abdomen: Bowel sounds x 4, soft. No rebound, guarding or tenderness. No organomegaly. Extremities: No clubbing, cyanosis or edema. +2 pedal pulses bilaterally. Skin: Warm and dry. Results & Data ([facility]) Vital Signs (Past 12 Hours) Vital Signs Temp Pulse Pulse Resp BP BP Pulse Ox 12/02/20 11:25 36.6 C 52 L 18 152/69 H 92 12/02/20 10:14 56 L 151/77 H 12/02/20 07:56 54 L 12/02/20 07:03 36.6 C 54 L 20 156/81 H 95 12/02/20 03:20 36.9 C 55 L 17 149/72 H 94
--- NOTE | 2020-12-02 13:36 | Discharge Summary ---
Date of Service December 02, 2020 Admission HPI Per Admitting Provider This is a 75-year-old male with past medical history significant for hyperlipidemia, hypertension, prolonged QT syndrome, mantle cell lymphoma in remission, presents with palpitations. The patient says yesterday he went with some of his friends for fishing plan and when he got home at 10:00 pm when he was watching TV, felt funny feeling in the chest and palpitations. It happened about one month ago. At that time, it lasted for 1 hour and resolved itself after drinking Gatorade. He tried to do the same thing last night, but it did not resolve. He tried to go to bed at 12:00, but it was not getting better, still feeling the same, so he came to the ER and found to have rapid atrial fibrillation. During all this process, he never had any chest pain or shortness of breath. Denies any cough, fever or chills. No headache, no blurred vision, no earache, no runny nose, no sore throat, no nausea, no abdominal pain. Normal bowel and bladder movements. Denies any hematuria. Denies any bloody stools or black stools. No swelling in the legs, no rash. The patient states he is active. 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 He is currently converted to sinus rhythm. Admission Exam Per Admitting Provider GENERAL: The patient is moderate build, not in acute distress. VITAL SIGNS: Temperature 36, pulse 100 respiratory rate 20s, blood pressure 156/76, oxygen 95% on room air. HEENT: Pupils equal, round, reactive to light. Oral mucosa moist. NECK: No JVD. No neck masses. CARDIOVASCULAR: S1, S2 heard, regular rate and rhythm, no murmur, no gallop. RESPIRATORY SYSTEM: Normal AP diameter. No accessory muscle use. No wheezing, no crackles. ABDOMEN: Soft, bowel sounds present, nontender. No distention. CENTRAL NERVOUS SYSTEM: Cranial nerves II-XII grossly intact. Nonfocal. EXTREMITIES: No edema, no erythema. Principal Diagnosis A. fib with RVR Discharge Exam GENERAL: The patient is of moderate build, not in any distress. HEENT: NC/AT, Pupils equal, round, reactive to light. Oral mucosa moist. NECK: No JVD. No neck masses. CARDIOVASCULAR: S1, S2 heard, regular rate and rhythm, no murmur, no gallop. No lower extremity edema RESPIRATORY SYSTEM: Normal AP diameter. No accessory muscle use. No wheezing, no crackles. ABDOMEN: Soft, bowel sounds present, nontender. No distention. NEURO: Alert and oriented x3, no facial asymmetry, speech fluent, moves all 4 extremities spontaneously and without difficulty EXTREMITIES: No edema, no erythema. Discharge Data Allergies Allergy/AdvReac Type Severity Reaction Status Date / Time rituximab [From Rituxan] Allergy Intermediate "muscles Verified 12/01/20 03:46 got tight" Consultations 12/01/20 05:40 ED Decision to Admit Stat 12/01/20 08:00 Consult Cardiology Routine Hospital Course (1) Atrial fibrillation with rapid ventricular response: (2) Elevated troponin: This is a 75-year-old male who presents with rapid atrial fibrillation. 1. Rapid atrial fibrillation, new onset. Prior episode of palpitations 1 month ago which resolved on its own. Currently in normal sinus rhythm, converted in the ED. T wave inversions in lateral leads seems to be chronic. Placed on IV Lopressor p.r.n. and started on IV heparin, now on Eliquis. Serial troponins obtained, peaked at 0.115 Echocardiogram obtained -normal LV chamber size with moderate concentric LVH. Normal LV systolic function, EF 55 to 60%. No segmental wall motion abnormalities, except mild hypokinetic apex. Grade 2 diastolic dysfunction. Severe left atrial enlargement Cardiology consulted Plan to discharge on metoprolol, Eliquis and increased dose of lisinopril to 40 mg daily. Plan for cardiology follow-up and stress test as outpatient. 2. Mild elevation of troponin, likely secondary to A. fib with RVR - demand ischemia. serial enzymes obtained and cardiology following. Started pt on aspirin and we will check lipid profile. Monitor in the tele floor. 3. History of hypertension. Continued his lisinopril/hydrochlorothiazide. Blood pressure elevated yesterday, therefore lisinopril increased to 40 mg daily, we will also discharged on metoprolol. 4. History of hyperlipidemia. Continue statin. 5. History of mantle cell lymphoma, seems to be in remission. Follows with Hematology/Oncology on Imbruvica. 6. Thrombocytopenia, seems to be chronic. We will follow. The platelets are 101. repeat labs stable 7. History of prolonged QT syndrome. We will follow the EKGs, Avoid Qt prolonging drugs. DVT ppx, on IV heparin initially, now on Eliquis DISPOSITION: Plan to discharge home and follow with family doctor and cardiology. Total Time Total Time Spent Total Time Spent (In Minutes): 37 Total Time Includes: Examination of the Patient, Discharge Planning, Medication Reconciliation and Communication With Other Providers Discharge Plan Discharge Items Patient Disposition: Home - Self-Care Reason For Visit: PALPITATIONS Discharge Diagnosis: A. fib with RVR Activity: Per Instructions section Non-emergency contact: Primary Care Provider and Roving Winder Call non-emergency contact if: you have any medication questions and your symptoms worsen Follow-up/Referrals: PCP,NO [Primary Care Provider] - Diet: Heart Healthy Addtl Attending Provider Instructions: Follow-up with your primary care provider within 1 to 2 weeks. You will also need to follow-up with a brusher, you will be contacted about the appointment. You may need further testing, such as a stress test. This will be arranged by the cardiology office. Take Eliquis 5 mg twice a day. Take metoprolol 25 mg daily. Do not take your blood pressure medication which is a combination of lisinopril and hydrochlorothiazide. This medication was adjusted as your blood pressure was not well controlled. Instead, take lisinopril 40 mg daily and hydrochlorothiazide 25 mg daily. The new prescription was sent to [facility] pharmacy. Pending Studies at Discharge: No Stand-Alone [facility]: [facility] C[facility] Medications and DC Order Prescriptions: New Eliquis 5 mg Tablet 5 mg PO BID Qty: 60 RF: 0 metoprolol succinate 25 mg Tablet Extended Release 24 Hr 25 mg PO QAM Qty: 30 RF: 0 lisinopril 40 mg tablet 40 mg PO DAILY Qty: 30 RF: 0 hydrochlorothiazide 25 mg tablet 25 mg PO DAILY Qty: 30 RF: 0 Continued celecoxib [Celebrex] 200 mg Capsule 200 mg PO QAM RF: 0 simvastatin 20 mg Tablet 20 mg PO HS RF: 0 cholecalciferol (vitamin D3) [Vitamin D3] 50 mcg (2,000 unit) Tablet 50 mcg PO QAM RF: 0 Centrum Silver Men 300-600-300 mcg Tablet 1 tab PO QAM RF: 0 Imbruvica 140 mg Tablet 280 mg PO QAM RF: 0 Discontinued lisinopril-hydrochlorothiazide 20-25 mg Tablet 1 tab PO QAM RF: 0 Discharge Orders: Discharge Order (Routine); Ordered 12/02/20 Ordered By: Ralph Benson Admission Data Admit Date/Time: 12/01/20 07:07 Attending Provider: Ralph Benson Admit Provider: Ryan Carlson Primary Care Provider: PCP,NO Other Providers: Ryan Carlson ; Tremayne Jiang ; David Martinez ; Wilson Cuellar ; Raz Berry ; Darwin Dominique ; Kwaku Bowden ; Angela Stack ; Renetta Wagoner ; Samuel Kelly
== END 2020-12-02 14:06 | disposition home or self-care (01) | DRG 309 ==
LOC: ED 03:31 → 2S 07:07

== ENCOUNTER 2021-04-03 23:10 | Observation (INO) ==
[2021-04-03] MEDS ORDERED: ASPIRIN CHEW 324 MG PO STA (23:24)
[2021-04-03] MEDS ORDERED: NITROGLYCERIN SL 0.4 MG/TAB TAB ONE (23:28)
--- NOTE | 2021-04-03 23:43 | Emergency Department Note ---
History of Present Illness General Chief Complaint: Cardiac Assessment Stated Complaint: chest tightness/pressure Time Seen by Provider: 04/03/21 23:23 History of Present Illness Provider Complaint: chest pain Onset (ago): minute(s) 30 Duration: constant Onset: during rest Pain Location: left chest Pain Radiation: LUE Severity: moderate Current Pain Intensity: 2 Quality: + tightness Relieved By: + nothing Exacerbated By: + nothing Context: no recent illness, no recent surgery, no recent immobilization, no recent travel, no trauma/injury, no new medications or no history of DVT/PE Associated symptoms: no nausea, no vomiting, no diaphoresis, no dyspnea, no sense of impending doom, no syncope, no palpitations, no fever, no cough or no leg swelling Home Medications Medication Instructions Recorded Confirmed Type cholecalciferol (vitamin D3) 50 50 mcg PO QAM 03/27/20 03/25/21 History mcg (2,000 unit) tablet (Vitamin D3) ibrutinib 140 mg tablet (Imbruvica) 280 mg PO QAM 03/27/20 03/25/21 History bbchirfj-ggo-knhto acid 300 1 tab PO QAM 03/27/20 03/25/21 History mcg-lycopene 600 mcg-lutein 300 mcg tablet (Centrum Silver Men) simvastatin 20 mg tablet 20 mg PO HS 03/27/20 03/25/21 History celecoxib 200 mg capsule (Celebrex) 200 mg PO QAM 04/30/20 03/25/21 History apixaban 5 mg tablet (Eliquis) 5 mg PO BID #60 tab 12/02/20 03/25/21 Rx hydrochlorothiazide 25 mg tablet 25 mg PO DAILY #30 tab 12/02/20 03/25/21 Rx lisinopril 40 mg tablet 40 mg PO DAILY #30 tab 12/02/20 03/25/21 Rx metoprolol succinate 25 mg 25 mg PO QAM #30 tab 12/02/20 03/25/21 Rx tablet,extended release 24 hr amlodipine 5 mg tablet 5 mg PO UD 03/25/21 03/25/21 History doxycycline hyclate 100 mg tablet 100 mg PO BID 21 Days #42 tab 03/25/21 Rx hydralazine 25 mg tablet 25 mg PO TID 03/25/21 03/25/21 History Allergies Allergy/AdvReac Type Severity Reaction Status Date / Time rituximab [From Rituxan] Allergy Intermediate "muscles Verified 03/25/21 08:58 got tight" Past Med/Surg History Medical History (Updated 04/04/21 @ 01:16 by Apolinar Lakhani) Hx of lymphoma, non-Hodgkins Hyperlipidemia Hypertension Osteoarthritis Peripheral neuropathy Surgical History H/O hand surgery RT HAND RING FINGER TRIGGER RELEASE History of eye surgery LEFT (MACULAR PUCKER REPAIR) History of left cataract surgery [place] teeth removed Family History Other No significant family history Social History Smoking Status: Never smoker Cigarettes Per Day: 1-2 CIGARS PER WEEK; Second Hand Exposure: Yes (socially); Hx Alcohol Use: Yes Alcohol type: beer, wine and hard liquor Hx Substance Use: No Preferred Language: Pashto Communication Ability: Effective Psych Rn Required: No Beliefs That Will Affect Care: None Current Living Situation: Spouse Feels Safe at Home: Yes Assistive Devices: None Review of Systems A total of 10 systems reviewed and were otherwise negative Physical Exam Vital Signs Vital Signs - 24 hr 04/03/21 23:14 04/03/21 23:27 04/03/21 23:30 Temperature 36.6 C Temperature Source Temporal Artery Scan Pulse Rate 68 61 Pulse Rate [Right Apical] 60 Pulse Rate from SpO2 Sensor 61 Respiratory Rate 22 18 18 Respiratory Effort / Characteristics Non-Labored Spontaneous Non-Labored Spontaneous Respiratory Depth Normal Normal Respiratory Pattern Regular Blood Pressure 202/90 H Blood Pressure [Right Arm] 211/94 H Blood Pressure Mean 127 Blood Pressure Mean [Right Arm] 133 Blood Pressure Position Sitting Blood Pressure Position [Right Arm] Lying Pulse Oximetry 95 98 96 Oxygen Delivery Method Room Air Room Air Sepsis Recent Fever Within 48 Hours No Sepsis New/Unexplained Change in Mental Status No Sepsis Action Taken by Nursing No Action Required 04/03/21 23:48 04/04/21 00:00 04/04/21 00:07 Temperature Temperature Source Pulse Rate 60 Pulse Rate [Right Apical] Pulse Rate from SpO2 Sensor 57 L Respiratory Rate 16 Respiratory Effort / Characteristics Respiratory Depth Respiratory Pattern Blood Pressure Blood Pressure [Right Arm] Blood Pressure Mean Blood Pressure Mean [Right Arm] Blood Pressure Position Blood Pressure Position [Right Arm] Pulse Oximetry 95 94 Oxygen Delivery Method Room Air Room Air Sepsis Recent Fever Within 48 Hours Sepsis New/Unexplained Change in Mental Status Sepsis Action Taken by Nursing 04/04/21 00:10 04/04/21 00:20 04/04/21 00:30 Temperature Temperature Source Pulse Rate 53 L 52 L 52 L Pulse Rate [Right Apical] Pulse Rate from SpO2 Sensor 53 L 51 L 51 L Respiratory Rate 19 24 14 Respiratory Effort / Characteristics Respiratory Depth Respiratory Pattern Blood Pressure 165/67 H Blood Pressure [Right Arm] Blood Pressure Mean 99 Blood Pressure Mean [Right Arm] Blood Pressure Position Blood Pressure Position [Right Arm] Pulse Oximetry 95 94 91 Oxygen Delivery Method Sepsis Recent Fever Within 48 Hours Sepsis New/Unexplained Change in Mental Status Sepsis Action Taken by Nursing 04/04/21 01:00 Temperature Temperature Source Pulse Rate 53 L Pulse Rate [Right Apical] Pulse Rate from SpO2 Sensor 53 L Respiratory Rate 16 Respiratory Effort / Characteristics Respiratory Depth Respiratory Pattern Blood Pressure 182/84 H Blood Pressure [Right Arm] Blood Pressure Mean 116 Blood Pressure Mean [Right Arm] Blood Pressure Position Blood Pressure Position [Right Arm] Pulse Oximetry 95 Oxygen Delivery Method Sepsis Recent Fever Within 48 Hours Sepsis New/Unexplained Change in Mental Status Sepsis Action Taken by Nursing Physical Exam GENERAL: He is oriented to person, place, and time. He appears well-developed and well-nourished. He does not appear distressed. HENT: Exam performed. - Head: Normocephalic and atraumatic. - Right Ear: External ear normal. No mastoid tenderness. - Left Ear: External ear normal. No mastoid tenderness. - Mouth/Throat: The oropharynx is clear and moist. No trismus in the jaw. No dental abscesses or uvula swelling. No oropharyngeal exudate or tonsillar abscesses. EYES: Conjunctivae and EOM are normal. Pupils are equal, round, and reactive to light. Right eye exhibits no discharge. Left eye exhibits no discharge. No scleral icterus. NECK: Normal range of motion. Neck supple. No JVD present. No spinous process tenderness present. No carotid bruit present. No rigidity. No tracheal deviation and normal range of motion present. No Brudzinski's sign and no Kernig's sign noted. CV: Normal rate, regular rhythm, normal heart sounds and intact distal pulses. There is no peripheral edema. Palpable radial pulses bue. PULM/CHEST: Effort normal and breath sounds normal. No respiratory distress. No stridor. He has no wheezes. He has no rales. - Chest Wall: He exhibits no tenderness. ABD: The abdomen is soft. Bowel sounds are normal. He has no distension. No mass is present. There is no tenderness. There is no rebound, no guarding, no Atkins's sign and no tenderness at McBurney's point. Rovsig negative. MUSC/SKEL: Normal range of motion. There is no peripheral edema, tenderness or deformity. LYMPH: No cervical adenopathy. NEURO: He is alert and oriented to person, place, and time. He has normal strength. No cranial nerve deficit or sensory deficit. Coordination and gait normal. GCS eye subscore is 4. GCS verbal subscore is 5. GCS motor subscore is 6. Cerebellar tests wnl. SKIN: Skin is warm and dry. He is not diaphoretic. PSYCH: He has a normal mood and affect. Behavior is normal. Judgment and thought content normal. Course Course 2323: The patient was evaluated in room A10. A complete history and physical exam was performed Cardiac monitoring: An order was placed for continuous cardiac monitoring. The monitor shows a rate of 70 with sinus rhythm 2355: Patient reports his chest discomfort is improved status post sublingual nitroglycerin. 0115: Vital signs stable. Patient reports no chest pain status post sublingual nitroglycerin. Labs and imaging within normal limits. Given the patient's chest pain got better with sublingual nitro, the patient will be brought in for chest pain rule out ACS. Patient is in agreement. [facility] hospitalist Dr. Carlson notified Administered Medications Discontinued Medications Aspirin (Aspirin Chew 324 Mg) 324 mg PO NOW STA Stop: 04/03/21 23:25 Last Admin: 04/03/21 23:29 Dose: 324 mg Documented by: [id number] Nitroglycerin (Nitroglycerin Sl 0.4 Mg/Tab Tab) Confirm Administered Dose 0.4 mg .ROUTE .STK-MED ONE Stop: 04/03/21 23:29 Last Admin: 04/03/21 23:29 Dose: 0.4 mg Documented by: [id number] Medical Decision Making Laboratory Data Result diagrams: 04/03/21 23:37 04/03/21 23:37 Labs: Lab Results 07/21/21 07/21/21 07/22/21 Range/Units 23:37 23:37 00:58 WBC 5.07 (4.8-10.8) K/uL RBC 5.05 (4.7-6.1) M/uL Hgb 15.0 (14.0-18.0) g/dL Hct 43.7 (42-52) % MCV 86.5 (80-100) fL MCH 29.7 (25-34) pg MCHC 34.3 (32-36) g/dL RDW Std Deviation 42.4 (36.4-46.3) fL RDW Coeff of Michael 13.3 (11.5-14.5) % Plt Count 91 L (130-400) K/uL MPV 11.1 H (7.4-10.4) fL Neutrophils % (Manual) 51.3 % Lymphocytes % (Manual) 9.6 % Reactive Lymphs % (Man) 30.4 % Monocytes % (Manual) 4.3 % Eosinophils % (Manual) 3.5 % Myelocytes % (Man) 0.9 % Neutrophils # (Manual) 2.60 (1.4-6.5) K/uL Total Absolute Neuts 2.60 (1.4-6.5) K/uL Lymphocytes # (Manual) 0.49 L (1.2-3.4) K/uL Reactive Lymphs # 1.54 K/uL Total Abs Lymphocytes 2.03 (1.2-3.4) K/uL Monocytes # (Manual) 0.22 (0.11-0.59) K/uL Eosinophils # (Manual) 0.18 (0-0.5) K/uL Myelocytes # (Manual) 0.05 H (0-0) K/uL RBC Morphology Unremarkable Sodium 141 (136-145) mmol/L Potassium 3.3 L (3.5-5.1) mmol/L Chloride 107 (98-107) mmol/L Carbon Dioxide 28 (21-32) mmol/L Anion Gap 6.0 (3-11) BUN 19 H (7-18) mg/dl Creatinine 0.99 (0.6-1.4) mg/dl Est Cr Clr Drug Dosing 76.4 ml/min Est GFR ( Amer) 85.4 ml/min Est GFR (Non-Af Amer) 73.7 ml/min BUN/Creatinine Ratio 19.4 (10-20) Glucose 116 H (70-99) mg/dl Calcium 9.2 (8.5-10.1) mg/dl Troponin I 0.020 (0-0.045) ng/ml Lipase 211 (73-393) U/L COVID-19 Eval Order Covid19 at [facility] Imaging Data Chest x-ray: My impression: Chest x-ray negative. Airway clear. No pneumothorax. No consolidation. No cardiomegaly or cephalization.. No free air under the diaphragm. No fractures of the skeletal structures. No significant change from the chest x-ray done 10 days ago. ECG Data Indication: chest pain Rate (beats per minute): 67 Rhythm: normal sinus Findings: + T-wave inversion (Leads I, aVL, V2, V4 through V6); no ST depression, no ST elevation or no prolonged QT Comparison ECG Date: from (March 25, 2021) Change: no significant change MDM Narrative 2323: The patient was evaluated in room A10. A complete history and physical exam was performed Cardiac monitoring: An order was placed for continuous cardiac monitoring. The monitor shows a rate of 70 with sinus rhythm 2355: Patient reports his chest discomfort is improved status post sublingual nitroglycerin. 0115: Vital signs stable. Patient reports no chest pain status post sublingual nitroglycerin. Labs and imaging within normal limits. Given the patient's chest pain got better with sublingual nitro, the patient will be brought in for chest pain rule out ACS. Patient is in agreement. [facility] hospitalist Dr. Carlson notified Impression & Plan Chest pain Discharge Plan Visit Data Chief Complaint: Cardiac Assessment Stated Complaint: chest tightness/pressure ED Provider: Apolinar Lakhani Discharge Problem: Chest pain Patient Disposition: Being Evaluated by Hospitalist Forms Stand Alone Forms: My [facility] [employer] Prescriptions Prescriptions: No Action celecoxib [Celebrex] 200 mg Capsule 200 mg PO QAM RF: 0 simvastatin 20 mg Tablet 20 mg PO HS RF: 0 cholecalciferol (vitamin D3) [Vitamin D3] 50 mcg (2,000 unit) Tablet 50 mcg PO QAM RF: 0 Centrum Silver Men 300-600-300 mcg Tablet 1 tab PO QAM RF: 0 Imbruvica 140 mg Tablet 280 mg PO QAM RF: 0 Eliquis 5 mg Tablet 5 mg PO BID Qty: 60 RF: 0 metoprolol succinate 25 mg Tablet Extended Release 24 Hr 25 mg PO QAM Qty: 30 RF: 0 lisinopril 40 mg tablet 40 mg PO DAILY Qty: 30 RF: 0 hydrochlorothiazide 25 mg tablet 25 mg PO DAILY Qty: 30 RF: 0 hydralazine 25 mg tablet 25 mg PO TID RF: 0 amlodipine 5 mg tablet 5 mg PO UD RF: 0 doxycycline hyclate 100 mg tablet 100 mg PO BID 21 Days Qty: 42 RF: 0 Referrals Referrals: Robert Segal DO [Primary Care Provider] - Discharge Problem: Chest pain Qualifiers: Chest pain type: unspecified Qualified Code(s): R07.9 - Chest pain, unspecified
[2021-04-03 23:46] LABS: Hematocrit (blood only) 43.7 % (42-52); Mean Corpuscular Hemoglobin 29.7 pg (25-34); Mean Corpuscular Hgb Conc 34.3 g/dL (32-36); Mean Corpuscular Volume 86.5 fL (80-100); RDW Coefficient of Variation 13.3 % (11.5-14.5); RDW Standard Deviation 42.4 fL (36.4-46.3); Red Blood Count 5.05 M/uL (4.7-6.1); White Blood Count 5.07 K/uL (4.8-10.8)
[2021-04-03 23:49] LABS: Mean Platelet Volume 11.1 fL (7.4-10.4); Platelet Count 91 K/uL (130-400)
[2021-04-04 00:04] LABS: BUN Creatinine Ratio 19.4 (10-20); Calcium 9.2 mg/dl (8.5-10.1); Creatinine Clr Calc Pharmacy 76.4 ml/min; Est GFR (African American) 85.4 ml/min; Est GFR (Non-African American) 73.7 ml/min; Potassium 3.3 mmol/L (3.5-5.1)
[2021-04-04 00:09] LABS: Troponin I 0.02 ng/ml (0-0.045)
[2021-04-04 00:26] LABS: ALC (manual) 2.03 K/uL (1.2-3.4); Eosinophils # (manual) 0.18 K/uL (0-0.5); Eosinophils % (manual) 3.5 %; Lymphocytes # (manual) 0.49 K/uL (1.2-3.4); Lymphocytes % (manual) 9.6 %; Monocytes # (manual) 0.22 K/uL (0.11-0.59); Monocytes % (manual) 4.3 %; Myelocytes # (manual) 0.05 K/uL (0-0); Myelocytes % (manual) 0.9 %; Neutrophils % (manual) 51.3 %; RBC Morphology Unremarkable; Reactive Lymphocytes # (manual) 1.54 K/uL; Reactive Lymphocytes % (manual) 30.4 %
[2021-04-04] MEDS ORDERED: NITROGLYCERIN SL 0.4 MG/TAB TAB SL PRN (02:47)
[2021-04-04] MEDS ORDERED: ACETAMINOPHEN 325 MG TAB PO PRN (02:47)
--- NOTE | 2021-04-04 03:30 | History and Physical Report ---
DATE OF ADMISSION: 04/04/2021. CHIEF COMPLAINT: Chest pain. HISTORY OF PRESENT ILLNESS: A 75-year-old male with past medical history significant for hyperlipidemia, hypertension, history of prolonged QT syndrome, history of mantle cell lymphoma, history of atrial fibrillation, who presents with chest pain. The patient says he was working on his laptop at 11:00 p.m. and after that he went to brush his teeth when he suddenly felt squeezy feeling in his chest. Then when he checked his blood pressure, it was very high, systolic pressure was in 220s, then he felt some funny feeling in the left side of chest, radiating to his left arm when he decided to come to the ER. He was in the ER by 20-40 minutes of symptoms onset. By the time he was in the ER, he was given aspirin and nitro and his symptoms resolved. Currently, resting comfortably and hemodynamically stable. His blood pressure was somewhat running high. Recently, his blood pressure is also running high and he was in the ER on 03/25/2021. At that time, he had some mild leukopenia and he had significant outdoor exposure. He was started on doxycycline for possible Lyme. He says after starting the doxycycline, after a few days his blood pressure seemed to be getting a little better. He felt slight dizziness during today episode, but no sweating, no nausea, no shortness of breath, no cough, no fever, no chills, no earache, no runny nose, no sore throat, no dysphagia, no abdominal pain. Normal bowel and bladder movements. No blood in the stools or black stools. No hematuria. He has some swelling in the legs recently because of his amlodipine and dose was reduced. Otherwise, he is ambulating fine, he walks every day and he moved his furniture yesterday fine. ALLERGIES: Rituximab PAST MEDICAL HISTORY: As mentioned above. PAST SURGICAL HISTORY: Stress echo. MEDICATIONS: The patient is on amlodipine 2.5 mg p.o. daily, metoprolol succinate 12.5 mg p.o. b.i.d., ibrutinib 140 mg 2 tablets daily, hydralazine 25 mg p.o. t.i.d., Eliquis 5 mg p.o. b.i.d., hydrochlorothiazide 25 mg p.o. daily, lisinopril 40 mg p.o. daily, celecoxib 200 mg p.o. daily, simvastatin 20 mg p.o. at bedtime, vitamin D 1000 units p.o. daily, multivitamins with minerals one tablet p.o. daily. FAMILY HISTORY: Significant for father has Alzheimer disease; mother has diabetes, hypertension; maternal grandmother of cancer in her 50s; paternal grandfather has heart disorder. SOCIAL HISTORY: . Cigars once or twice a week. Alcohol 1-3 drinks a week. No drug use. REVIEW OF SYSTEMS: As per HPI. Rest of the review of systems is negative. PHYSICAL EXAMINATION: GENERAL: The patient is of moderate build, not in acute distress. VITAL SIGNS: Temperature 36.6, pulse 55, respiratory rate 18, blood pressure 181/86, oxygen 94% on room air. HEENT: Pupils equal, round and reactive to light. Oral mucosa moist. NECK: No JVD. No masses. CARDIOVASCULAR: S1 and S2 heard. Regular rate and rhythm. No murmur, no gallop. RESPIRATORY SYSTEM: Normal AP diameter. No accessory muscle use. No wheezing, no crackles. ABDOMEN: Soft, bowel sounds present, nontender, no distention. CENTRAL NERVOUS SYSTEM: Cranial nerves II-XII grossly intact, nonfocal. EXTREMITIES: Mild pedal edema present, no erythema seen. LABORATORY DATA: WBC 5, hemoglobin 15, hematocrit 43.7, platelets 91. Sodium 141, potassium 3.3, chloride 107, bicarbonate 28, BUN 19, creatinine 0.9, serum glucose 116, calcium 9.2, troponin 0.02. Lipase 211. SARS-CoV-2 negative. CXr unremarkable. EKG Normal sinus rhythm with rate of 67. No significant change from previous ekg. a/p 75M with hx of HTN, Hyperlipidemia, a fib, mantle cell lymphoma presents with chest pain. 1.Chest pain risk factors of age, htn, hyperlipidemia initial workup negative will keep npo serial CE, echo and cardio consult in am Monitor in tele 2. HTN elevated. On lisinopril, hctz, toprol xl, hydralazine. Will monitor. If continues to be elevated will add nitro past. 3. Hyperlipidemia on statin 4.Hx of Mantle cell lymphoma. On Ibrutinib. Follow up with heme/onco. 5. A fib. On Metoprol and eliquis. 6. Lyme disease? On Doxycycline. leukopenia improved.Followup with PCP. 7. Chronic thrombocytopenia. Possibly from chemo. Will follow labs. 8.Dvt prophylaxis. On eliquis 9.Disposition Observe in med/tele Expect to discharge home and followup with PCP. Full code. Job ID: [id number]
[2021-04-04 05:41] LABS: Hematocrit (blood only) 43.5 % (42-52); Hemoglobin 14.7 g/dL (14.0-18.0); Mean Corpuscular Hemoglobin 29.6 pg (25-34); Mean Corpuscular Hgb Conc 33.8 g/dL (32-36); Mean Corpuscular Volume 87.7 fL (80-100); RDW Coefficient of Variation 13.3 % (11.5-14.5); RDW Standard Deviation 42.5 fL (36.4-46.3); Red Blood Count 4.96 M/uL (4.7-6.1); White Blood Count 4.31 K/uL (4.8-10.8)
[2021-04-04 05:55] LABS: Platelet Count 86 K/uL (130-400)
[2021-04-04 06:05] LABS: BUN Creatinine Ratio 19.2 (10-20); Calcium 8.6 mg/dl (8.5-10.1); Creatinine Clr Calc Pharmacy 84.6 ml/min; Est GFR (African American) 96.3 ml/min; Est GFR (Non-African American) 83.1 ml/min; Magnesium 2.3 mg/dl (1.8-2.4); Potassium 3.7 mmol/L (3.5-5.1)
[2021-04-04 06:10] LABS: Troponin I 0.041 ng/ml (0-0.045)
[2021-04-04 06:31] LABS: ALC (manual) 1.76 K/uL (1.2-3.4); ANC (manual) 2.02 K/uL (1.4-6.5); Eosinophils # (manual) 0.04 K/uL (0-0.5); Eosinophils % (manual) 0.9 %; Lymphocytes # (manual) 0.64 K/uL (1.2-3.4); Lymphocytes % (manual) 14.8 %; Monocytes # (manual) 0.45 K/uL (0.11-0.59); Monocytes % (manual) 10.4 %; Myelocytes # (manual) 0.04 K/uL (0-0); Myelocytes % (manual) 0.9 %; Neutrophils # (manual) 2.02 K/uL (1.4-6.5); Neutrophils % (manual) 46.9 %; RBC Morphology Unremarkable; Reactive Lymphocytes # (manual) 1.12 K/uL; Reactive Lymphocytes % (manual) 26.1 %
--- NOTE | 2021-04-04 07:34 | XRay Report ---
XR chest 2V PA/lateral CLINICAL HISTORY: Atypical chest pain COMPARISON STUDY: 03/25/2021 FINDINGS: The cardiac and mediastinal contours remain stable. There is no failure. There is no focal pulmonary consolidation. There are no pleural effusions. There is subtle as a lower septal lines most pronounced at the left lung base.[ IMPRESSION: 1. Subtle subpleural septal thickening/edema most pronounced at the left lung base. 2. No current evidence of overt failure 3. No evidence of focal pulmonary consolidation ACT 112: Negative or not required by law. Electronically signed by: Reddy Stern M.D. 04/04/2021 7:32 AM
--- NOTE | 2021-04-04 08:52 | Electrocardiogram Report ---
Test Reason : Blood Pressure : / mmHG Vent. Rate : 067 BPM Atrial Rate : 067 BPM P-R Int : 166 ms QRS Dur : 108 ms QT Int : 470 ms P-R-T Axes : 050 001 170 degrees QTc Int : 496 ms Normal sinus rhythm Left ventricular hypertrophy with repolarization abnormality Prolonged QT Abnormal ECG When compared with ECG of 25-MAR-2021 09:00, No significant change was found Confirmed by Migue Mehta ([id number]) on 04/04/2021 8:51:53 AM Referred By: REFERRED SELF Confirmed By:Migue Mehta
[2021-04-04] MEDS ORDERED: hydroCHLOROthiazide 25 MG TAB PO SCH (09:00)
[2021-04-04] MEDS ORDERED: METOPROLOL SUCC 25MG EXT REL TAB PO SCH (09:00)
--- NOTE | 2021-04-04 09:04 | Cardiology Consultation ---
Date of Consultation April 04, 2021 Assessment & Plan (1) Hypertensive urgency: I had a long discussion with the patient regarding his elevated blood pressure and presenting symptoms. His troponins are not significantly elevated. Review of resting 2D transthoracic echocardiogram demonstrates no regional wall motion abnormalities. ECG on admission is abnormal, however, unchanged when compared to prior tracings. Recommend discontinuation of metoprolol in favor of carvedilol 6.25 mg twice daily. Hydrochlorothiazide will be discontinued in favor of chlorthalidone (more potent). First dose in a.m. 04/05/2021. Consider addition of Aldactone during hospitalization (2) Chest pain: Patient without anginal chest pain on admission. Palpitations likely related to sensed ventricular ectopy. Recent Lexiscan nuclear stress test negative for inducible ischemia. (3) Paroxysmal atrial fibrillation: Sinus rhythm since admission. No evidence of recurrent atrial fibrillation per recent ZIO monitor. Continue anticoagulation. Transition metoprolol to carvedilol as noted above. History of Present Illness Reason for Consultation: Chest pain, Hypertension Requesting Physician: Dr. Carlson Attending Physician: Mira Diallo DO History of Present Illness 75-year-old patient present to the emergency department with elevated blood pressure and palpitations. Patient describes sensation of "forceful heartbeats". This occurred in the evening. Reports an unusual sensation in his chest. Became concerned that his blood pressure was elevated and assessed his home blood pressure which was in excess of 220/100. Drove to the emergency department for further evaluation. Treated with sublingual nitroglycerin and topical nitrates. Admitted for observation. Chest pain-free overnight. Blood pressure modestly improved with topical nitrates. Recently diagnosed with Lyme disease. Taking doxycycline daily for the past 10 days. Denies orthopnea, PND, lower extreme edema, or claudication. No focal weakness, visual changes, slurred speech, paresthesias, or gait instability. Recently evaluated in the cardiology office for follow-up of hypertension and paroxysmal atrial fibrillation. Amlodipine reduced to 2.5 mg daily secondary to pedal and ankle edema. Otherwise tolerating current antihypertensive medications including metoprolol, lisinopril, hydrochlorothiazide, and amlodipine. Dose of metoprolol limited by resting bradycardia. No evidence of recurrent atrial fibrillation per recent 7-day ZIO monitor. Recent Lexiscan nuclear stress test negative for inducible ischemia. Allergies Allergy/AdvReac Type Severity Reaction Status Date / Time rituximab [From Rituxan] Allergy Intermediate "muscles Verified 03/25/21 08:58 got tight" Home Medications Medication Instructions Recorded Confirmed Type cholecalciferol (vitamin D3) 50 50 mcg PO QAM 03/27/20 03/25/21 History mcg (2,000 unit) tablet (Vitamin D3) ibrutinib 140 mg tablet (Imbruvica) 280 mg PO QAM 03/27/20 03/25/21 History jkoewmbk-qfj-sbgff acid 300 1 tab PO QAM 03/27/20 03/25/21 History mcg-lycopene 600 mcg-lutein 300 mcg tablet (Centrum Silver Men) simvastatin 20 mg tablet 20 mg PO HS 03/27/20 03/25/21 History celecoxib 200 mg capsule (Celebrex) 200 mg PO QAM 04/30/20 03/25/21 History apixaban 5 mg tablet (Eliquis) 5 mg PO BID #60 tab 12/02/20 03/25/21 Rx hydrochlorothiazide 25 mg tablet 25 mg PO DAILY #30 tab 12/02/20 03/25/21 Rx lisinopril 40 mg tablet 40 mg PO DAILY #30 tab 12/02/20 03/25/21 Rx amlodipine 5 mg tablet 2.5 mg PO DAILY 03/25/21 03/25/21 History doxycycline hyclate 100 mg tablet 100 mg PO BID 21 Days #42 tab 03/25/21 Rx hydralazine 25 mg tablet 25 mg PO TID 03/25/21 03/25/21 History metoprolol succinate 25 mg 12.5 mg PO BID 04/04/21 History tablet,extended release 24 hr Patient History Medical History (Updated 04/04/21 @ 22:47 by Mira Diallo DO) Hx of lymphoma, non-Hodgkins Hyperlipidemia Hypertension Osteoarthritis Peripheral neuropathy Surgical History H/O hand surgery RT HAND RING FINGER TRIGGER RELEASE History of eye surgery LEFT (MACULAR PUCKER REPAIR) History of left cataract surgery [place] teeth removed Family History Other No significant family history Social History Smoking Status: Light tobacco smoker Cigarettes Per Day: Smokes cigars on occassion; Second Hand Exposure: No; Do You Dip or Chew Tobacco: No; Tobacco Cessation Education Requested by Patient: No Hx Alcohol Use: Yes Alcohol type: wine and hard liquor Hx Substance Use: No Preferred Language: Frisian Communication Ability: Effective Spread Cutter Required: No Beliefs That Will Affect Care: None Current Living Situation: Spouse Current Living Situation Comment: Lives w/ spouse at home Other Information That Helps Us Care for You: No Feels Safe at Home: Yes Safety Concerns: Feels Safe At This Time Assistive Devices: None Review of Systems Review of Systems: All systems reviewed & are unremarkable except as noted in Subjective Results & Data ([facility]) Vital Signs (Past 12 Hours) Vital Signs Temp Pulse Pulse Pulse Resp BP BP 04/04/21 08:03 36.7 C 49 L 20 167/73 H 04/04/21 02:49 36.7 C 54 L 18 04/04/21 02:47 36.7 C 57 L 53 L 18 04/04/21 02:26 49 L 18 151/65 H 04/04/21 02:00 59 L 12 193/92 H 04/04/21 01:30 53 L 18 181/86 H 04/04/21 01:00 53 L 16 182/84 H 04/04/21 00:30 52 L 14 165/67 H 04/04/21 00:20 52 L 24 04/04/21 00:10 53 L 19 04/04/21 00:07 60 16 04/03/21 23:48 04/03/21 23:30 61 18 202/90 H 04/03/21 23:27 60 18 04/03/21 23:14 36.6 C 68 22 BP Pulse Ox Pulse Ox 04/04/21 08:03 95 04/04/21 02:49 182/77 H 96 04/04/21 02:47 182/77 H 96 96 04/04/21 02:26 04/04/21 02:00 95 04/04/21 01:30 94 04/04/21 01:00 95 04/04/21 00:30 91 04/04/21 00:20 94 04/04/21 00:10 95 04/04/21 00:07 94 04/03/21 23:48 95 04/03/21 23:30 96 04/03/21 23:27 211/94 H 98 04/03/21 23:14 95 Diagnostic Findings Lexiscan nuclear stress report 12/11/2020: Myocardial perfusion imaging is normal. Overall left ventricular systolic function was normal without regional wall motion abnormalities. The left ventricular ejection fraction was 59%. There are no prior studies available for comparison. 7 Day Zio report 03/13/2021: Patient had a min HR of 42 bpm, max HR of 158 bpm, and avg HR of 53 bpm. Predominant underlying rhythm was Sinus Rhythm. 6 Supraventricular Tachycardia runs occurred, the run with the fastest interval lasting 7 beats with a max rate of 158 bpm, the longest lasting 8 beats with an avg rate of 104 bpm. Some episodes of Supraventricular Tachycardia may be possible Atrial Tachycardia with variable block. Isolated SVEs were rare (<1.0%), SVE Couplets were rare (<1.0%), and SVE Triplets were rare (<1.0%). Isolated VEs were frequent (8.9%, [id number]), VE Couplets were rare (<1.0%, 90), and no VE Triplets were present. Ventricular Bigeminy and Trigeminy were present. Agree with above. No sustained episodes of atrial fibrillation. Frequent PVCs. (1) Chest pain Chest pain type: unspecified Qualified Code(s): R07.9 - Chest pain, unspecified
[2021-04-04] MEDS: NITROGLYCERIN 2% OINTMENT 30GM TUBE EXT SCH ×3 (09:05→19:38)
[2021-04-04] MEDS: lisinopril 40 MG TAB PO SCH (09:07)
[2021-04-04] MEDS: CHOLECALCIFEROL 1,000 UNITS 25 MCG TAB PO SCH (09:07)
[2021-04-04] MEDS: APIXABAN 5 MG TABLET PO SCH ×2 (09:07→21:09)
[2021-04-04] MEDS: DOXYCYCLINE HYCLATE 100 MG CAP PO SCH ×2 (09:07→21:08)
[2021-04-04] MEDS: MULTIVITAMIN TAB PO SCH (09:08)
[2021-04-04] MEDS: hydrALAZINE HCL 25 MG TAB PO SCH ×3 (09:08→21:08)
[2021-04-04] MEDS: amLODIPine BESYLATE 5 MG TAB PO SCH (09:09)
[2021-04-04] MEDS: carvediloL 6.25 MG TAB PO SCH ×2 (10:41→21:07)
--- NOTE | 2021-04-04 19:21 | Hospitalist Progress Note ---
Date of Service April 04, 2021 Assessment & Plan (1) Hypertensive urgency: Plan: Started on Coreg and chlorthalidone, cont hydralazine and lisinopril 40mg daily with improvement in blood pressure and symptoms. BP now around goal (2) Chest pain: Plan: Likely related to uncontrolled HTN. Resolved. Trop trend negative. Recent Lexiscan nuclear stress test negative for inducible ischemia. Echo with no regional wall motion abnormalities. (3) Paroxysmal atrial fibrillation: Plan: cont on coreg and eliquis, maintains in sinus rhythm on telemetry. (4) Lyme disease: Plan: Recently started on a course of doxycycline for clinical Lyme disease. Serology is negative. Cont total 21 days as prescribed by outside provider. (5) Thrombocytopenia: Plan: chronic, no active bleeding (6) DVT prophylaxis: Plan: apixaban Full Dispo-to home when medically stable [facility]lo [facility] and Anticipated Discharge Date Admission Date: April 04, 2021 Subjective 75 yo M admitted with hypertensive urgency. Initially reported an unusual sensation in his chest. BP at home was around 220/100. With treatment overnight he is feeling asymptomatic and doing well overall. DEnies CP, SOB or headache. Expresses confidence in the cardiologists recommendations for BP medication changes. Review of Systems Review of Systems: All systems were reviewed and negative except as indicated in HPI above. Physical Exam Physical Exam: CONSTITUTIONAL: obese, vitals as above, generally well- appearing EYES: normal conjunctivae, no scleral icterus ENT: external ear and nose normal, MMM RESPIRATORY: clear to auscultation bilaterally, no crackles, rales or wheezes, normal respiratory effort CARDIOVASCULAR: regular rate and rhythm, S1 and 2 heard without murmurs, gallops or rubs, no JVD, no peripheral edema, no abdominal bruits, equal radial pulses bilaterally CHEST: inspection of chest was normal GASTROINTESTINAL: normal bowel sounds, soft, nontender, nondistended, no guarding MUSCULOSKELETAL: strength 5/5 throughout, head is normocephalic and atraumatic SKIN: warm and dry NEUROLOGIC: CN 2-12 grossly intact, no sensory deficit, normal cognition, normal speech, no tremor PSYCHIATRIC: alert cooperative and oriented to person, place and time. Results & Data Results & Data ([facility]) Vital Signs (Past 12 Hours) Vital Signs Temp Pulse Pulse Resp BP BP Pulse Ox 04/04/21 16:21 36.5 C 50 L 20 134/69 92 04/04/21 15:00 49 L 04/04/21 13:36 59 L 174/79 H 04/04/21 12:17 36.7 C 50 L 18 143/69 H 96 04/04/21 10:12 49 L 04/04/21 08:03 36.7 C 49 L 20 167/73 H 95 Laboratory Results Short CBC 04/03/21 04/04/21 Range/Units 23:37 05:22 WBC 5.07 4.31 L (4.8-10.8) K/uL Hgb 15.0 14.7 (14.0-18.0) g/dL Hct 43.7 43.5 (42-52) % Plt Count 91 L 86 L (130-400) K/uL BMP 04/03/21 04/04/21 23:37 05:22 Sodium 141 142 Potassium 3.3 L 3.7 Chloride 107 111 H Carbon Dioxide 28 29 BUN 19 H 17 Creatinine 0.99 0.89 Glucose 116 H 107 H Calcium 9.2 8.6 Cardiac Enzymes 04/03/21 04/04/21 04/04/21 Range/Units 23:37 05:22 08:50 Troponin I 0.020 0.041 0.029 (0-0.045) ng/ml Medications Administered Current Inpatient Medications Acetaminophen (Acetaminophen 325 Mg Tab) 650 mg PO Q4H PRN PRN Reason: Pain or Fever Stop: 05/04/21 02:46 Amlodipine Besylate (Amlodipine Besylate 5 Mg Tab) 2.5 mg PO QAM [facility] Stop: 05/04/21 08:59 Last Admin: 04/04/21 09:09 Dose: 2.5 mg Documented by: Apixaban (Apixaban 5 Mg Tablet) 5 mg PO BID [facility] Stop: 05/04/21 08:59 Last Admin: 04/04/21 09:07 Dose: 5 mg Documented by: Carvedilol (Carvedilol 6.25 Mg Tab) 6.25 mg PO BID [facility] Stop: 05/04/21 09:59 Last Admin: 04/04/21 10:41 Dose: 6.25 mg Documented by: Chlorthalidone (Chlorthalidone 25 Mg Tab) 25 mg PO QAM [facility] Stop: 05/05/21 08:59 Doxycycline Hyclate (Doxycycline Hyclate 100 Mg Cap) 100 mg PO BID [facility] Stop: 04/14/21 08:59 Last Admin: 04/04/21 09:07 Dose: 100 mg Documented by: Hydralazine HCl (Hydralazine Hcl 25 Mg Tab) 25 mg PO TID [facility] Stop: 05/04/21 08:59 Last Admin: 04/04/21 13:37 Dose: 25 mg Documented by: Lisinopril (Lisinopril 40 Mg Tab) 40 mg PO DAILY [facility] Stop: 05/04/21 08:59 Last Admin: 04/04/21 09:07 Dose: 40 mg Documented by: Miscellaneous (*Imbruvica*Order Awaiting Action) 1 ea N/A QS [facility] Stop: 05/04/21 07:59 Last Admin: 04/04/21 17:07 Dose: Not Given Documented by: Multivitamins ([facility]ivitamin Tab) [facility] Stop: 05/04/21 08:59 Last Admin: 04/04/21 09:08 Dose: 1 tab Documented by: Nitroglycerin (Nitroglycerin Sl 0.4 Mg/Tab Tab) 0.4 mg SL UD PRN PRN Reason: Chest Pain Stop: 05/04/21 02:46 Nitroglycerin (Nitroglycerin 2% Ointment 30gm Tube) 0.5 inch EXT Q6H [facility] Stop: 05/04/21 07:14 Last Admin: 04/04/21 13:37 Dose: 0.5 inch Documented by: Simvastatin (Simvastatin 20 Mg Tab) 20 mg PO HS [facility] Stop: 05/04/21 20:59 Vitamin D (Cholecalciferol 1,000 Units 25 Mcg Tab) 2,000 units PO QAM [facility] Stop: 05/04/21 08:59 Last Admin: 04/04/21 09:07 Dose: 2,000 units Documented by:
[2021-04-04] MEDS ORDERED: SIMVASTATIN 20 MG TAB PO SCH (21:00)
[2021-04-05] MEDS: NITROGLYCERIN 2% OINTMENT 30GM TUBE EXT SCH ×2 (04:07→07:35)
[2021-04-05] MEDS: carvediloL 6.25 MG TAB PO SCH (07:32)
[2021-04-05] MEDS: amLODIPine BESYLATE 5 MG TAB PO SCH (07:34)
[2021-04-05] MEDS: APIXABAN 5 MG TABLET PO SCH (07:34)
[2021-04-05] MEDS: CHOLECALCIFEROL 1,000 UNITS 25 MCG TAB PO SCH (07:34)
[2021-04-05] MEDS: MULTIVITAMIN TAB PO SCH (07:35)
[2021-04-05] MEDS: hydrALAZINE HCL 25 MG TAB PO SCH (07:35)
[2021-04-05] MEDS: lisinopril 40 MG TAB PO SCH (07:35)
[2021-04-05] MEDS: DOXYCYCLINE HYCLATE 100 MG CAP PO SCH (07:35)
[2021-04-05] MEDS ORDERED: CHLORTHALIDONE 25 MG TAB PO SCH (09:00)
[2021-04-05] MEDS ORDERED: carvediloL 3.125 MG TAB PO SCH (09:00)
[2021-04-05 09:20] LABS: BUN Creatinine Ratio 20.3 (10-20); Calcium 8.8 mg/dl (8.5-10.1); Creatinine Clr Calc Pharmacy 82.8 ml/min; Est GFR (African American) 95.8 ml/min; Est GFR (Non-African American) 82.7 ml/min; Magnesium 2.2 mg/dl (1.8-2.4); Potassium 3.6 mmol/L (3.5-5.1)
--- NOTE | 2021-04-05 10:09 | Cardiology Progress Note ---
Date of Service April 05, 2021 Assessment & Plan (1) Hypertensive urgency: Plan: Blood pressure significantly improved with addition of carvedilol. Borderline resting hypotension this a.m. Reduce dose to 3.125 mg twice daily. Seizure titration to 6.25 mg twice daily pending review of ambulatory blood pressure readings. Hydrochlorothiazide discontinued in favor of chlorthalidone. Other medications will be continued as previously ordered. Outpatient cardiology follow-up scheduled 04/19/2021. No further inpatient cardiac testing or intervention at this time. (2) Chest pain: Plan: Patient reporting palpitations without anginal chest discomfort on presentation. Cardiac enzymes are not significantly elevated despite markedly increased blood pressure on admission. Recent Lexiscan nuclear stress test negative for inducible ischemia. (3) Paroxysmal atrial fibrillation: Plan: Sinus rhythm since admission. No evidence of recurrent atrial fibrillation per recent ZIO monitor. Continue anticoagulation. Transition metoprolol to carvedilol as noted above. Monitor platelet count due to history of chronic thrombocytopenia. Admission and Anticipated Discharge Date Admission Date: April 04, 2021 Subjective Patient seen and examined the bedside. Denies chest pain or unusual shortness of breath. Blood pressure markedly improved with addition of carvedilol 6.25 mg twice daily. Hydrochlorothiazide transition to chlorthalidone this a.m. Telemetry reveals sinus bradycardia with heart rate ranging from 45-55 bpm overnight. No heart block, significant pauses, or symptomatic bradycardia. No evidence of recurrent atrial fibrillation. Tolerating current medications. Denies any recurrent palpitations, lightheadedness, or dizziness. No chest discomfort or shortness of breath. Review of Systems Review of Systems: All systems reviewed & are unremarkable except as noted in Subjective Physical Exam Constitutional: well developed and well nourished; no acute distress Respiratory: normal respiratory effort; no respiratory distress and no labored breathing Auscultation: no crackles, no rales, no rhonchi and no wheezes Cardiovascular: Rate/Rhythm: regular rate, regular rhythm and + bradycardic Heart Sounds: normal S1 and normal S2; no gallop, no murmur and no cardiac rub Vessels: femoral pulses present and radial pulses present Extremities: no edema Gastrointestinal (Abdomen): Inspection/Auscultation: abdomen normal to inspection and normal bowel sounds; abdomen not distended Percussion/Palpation: abdomen soft; abdomen nontender, no guarding and abdomen not rigid Neurologic: CN's II-XI intact bilaterally and moves all extremities; no focal motor deficits Motor/Sensory: no tremor Psychiatric: A+Ox3, euthymic affect Results & Data ([facility]) Vital Signs (Past 12 Hours) Vital Signs Temp Pulse Pulse Resp BP BP Pulse Ox 04/05/21 09:25 53 L 04/05/21 07:47 47 L 04/05/21 06:27 36.6 C 48 L 18 101/52 L 92 04/05/21 03:06 36.5 C 52 L 18 115/54 L 93 04/05/21 01:52 51 L 04/04/21 23:33 36.6 C 51 L 16 129/51 L 92 (1) Chest pain Chest pain type: unspecified Qualified Code(s): R07.9 - Chest pain, unspecified
--- NOTE | 2021-04-05 10:55 | Discharge Summary ---
Date of Service April 05, 2021 Admission HPI Per Admitting Provider HISTORY OF PRESENT ILLNESS: A 75-year-old male with past medical history significant for hyperlipidemia, hypertension, history of prolonged QT syndrome, history of mantle cell lymphoma, history of atrial fibrillation, who presents with chest pain. The patient says he was working on his laptop at 11:00 p.m. and after that he went to brush his teeth when he suddenly felt squeezy feeling in his chest. Then when he checked his blood pressure, it was very high, systolic pressure was in 220s, then he felt some funny feeling in the left side of chest, radiating to his left arm when he decided to come to the ER. He was in the ER by 20-40 minutes of symptoms onset. By the time he was in the ER, he was given aspirin and nitro and his symptoms resolved. Currently, resting comfortably and hemodynamically stable. His blood pressure was somewhat running high. Recently, his blood pressure is also running high and he was in the ER on 03/25/2021. At that time, he had some mild leukopenia and he had significant ou tdoor exposure. He was started on doxycycline for possible Lyme. He says after starting the doxycycline, after a few days his blood pressure seemed to be getting a little better. He felt slight dizziness during today episode, but no sweating, no nausea, no shortness of breath, no cough, no fever, no chills, no earache, no runny nose, no sore throat, no dysphagia, no abdominal pain. Normal bowel and bladder movements. No blood in the stools or black stools. No hematuria. He has some swelling in the legs recently because of his amlodipine and dose was reduced. Otherwise, he is ambulating fine, he walks every day and he moved his furniture yesterday fine. Admission Exam Per Admitting Provider PHYSICAL EXAMINATION: GENERAL: The patient is of moderate build, not in acute distress. VITAL SIGNS: Temperature 36.6, pulse 55, respiratory rate 18, blood pressure 181/86, oxygen 94% on room air. HEENT: Pupils equal, round and reactive to light. Oral mucosa moist. NECK: No JVD. No masses. CARDIOVASCULAR: S1 and S2 heard. Regular rate and rhythm. No murmur, no gallop. RESPIRATORY SYSTEM: Normal AP diameter. No accessory muscle use. No wheezing, no crackles. ABDOMEN: Soft, bowel sounds present, nontender, no distention. CENTRAL NERVOUS SYSTEM: Cranial nerves II-XII grossly intact, nonfocal. EXTREMITIES: Mild pedal edema present, no erythema seen. Principal Diagnosis Hypertensive urgency Discharge Exam CONSTITUTIONAL: obese, vitals as above, generally well-appearing EYES: normal conjunctivae, no scleral icterus ENT: external ear and nose normal, MMM RESPIRATORY: clear to auscultation bilaterally, no crackles, rales or wheezes, normal respiratory effort CARDIOVASCULAR: regular rate and rhythm, S1 and 2 heard without murmurs, gallops or rubs, no JVD, no peripheral edema, no abdominal bruits, equal radial pulses bilaterally CHEST: inspection of chest was normal GASTROINTESTINAL: normal bowel sounds, soft, nontender, nondistended, no guarding MUSCULOSKELETAL: strength 5/5 throughout, head is normocephalic and atraumatic SKIN: warm and dry NEUROLOGIC: CN 2-12 grossly intact, no sensory deficit, normal cognition, normal speech, no tremor PSYCHIATRIC: alert cooperative and oriented to person, place and time. Discharge Data Allergies Allergy/AdvReac Type Severity Reaction Status Date / Time rituximab [From Rituxan] Allergy Intermediate "muscles Verified 03/25/21 08:58 got tight" Consultations 04/04/21 00:58 ED Decision to Admit Stat 04/04/21 08:00 Consult Cardiology Routine Ordered Studies Laboratory Results WBC 4.31 K/uL (4.8-10.8) L 04/04/21 05:22 RBC 4.96 M/uL (4.7-6.1) 04/04/21 05:22 Hgb 14.7 g/dL (14.0-18.0) 04/04/21 05:22 Hct 43.5 % (42-52) 04/04/21 05:22 MCV 87.7 fL (80-100) 04/04/21 05:22 MCH 29.6 pg (25-34) 04/04/21 05:22 MCHC 33.8 g/dL (32-36) 04/04/21 05:22 RDW Std Deviation 42.5 fL (36.4-46.3) 04/04/21 05:22 RDW Coeff of Michael 13.3 % (11.5-14.5) 04/04/21 05:22 Plt Count 86 K/uL (130-400) L 04/04/21 05:22 MPV 11.0 fL (7.4-10.4) H 04/04/21 05:22 Neutrophils % (Manual) 46.9 % 04/04/21 05:22 Lymphocytes % (Manual) 14.8 % 04/04/21 05:22 Reactive Lymphs % (Man) 26.1 % 04/04/21 05:22 Monocytes % (Manual) 10.4 % 04/04/21 05:22 Eosinophils % (Manual) 0.9 % 04/04/21 05:22 Myelocytes % (Man) 0.9 % 04/04/21 05:22 Neutrophils # (Manual) 2.02 K/uL (1.4-6.5) 04/04/21 05:22 Total Absolute Neuts 2.02 K/uL (1.4-6.5) 04/04/21 05:22 Lymphocytes # (Manual) 0.64 K/uL (1.2-3.4) L 04/04/21 05:22 Reactive Lymphs # 1.12 K/uL 04/04/21 05:22 Total Abs Lymphocytes 1.76 K/uL (1.2-3.4) 04/04/21 05:22 Monocytes # (Manual) 0.45 K/uL (0.11-0.59) 04/04/21 05:22 Eosinophils # (Manual) 0.04 K/uL (0-0.5) 04/04/21 05:22 Myelocytes # (Manual) 0.04 K/uL (0-0) H 04/04/21 05:22 RBC Morphology Unremarkable 04/04/21 05:22 Sodium 141 mmol/L (136-145) 04/05/21 08:21 Potassium 3.6 mmol/L (3.5-5.1) 04/05/21 08:21 Chloride 110 mmol/L (98-107) H 04/05/21 08:21 Carbon Dioxide 25 mmol/L (21-32) 04/05/21 08:21 Anion Gap 6.0 (3-11) 04/05/21 08:21 BUN 18 mg/dl (7-18) 04/05/21 08:21 Creatinine 0.90 mg/dl (0.6-1.4) 04/05/21 08:21 Est Cr Clr Drug Dosing 82.8 ml/min 04/05/21 08:21 Est GFR ( Amer) 95.8 ml/min 04/05/21 08:21 Est GFR (Non-Af Amer) 82.7 ml/min 04/05/21 08:21 BUN/Creatinine Ratio 20.3 (10-20) H 04/05/21 08:21 Glucose 108 mg/dl (70-99) H 04/05/21 08:21 Calcium 8.8 mg/dl (8.5-10.1) 04/05/21 08:21 Magnesium 2.2 mg/dl (1.8-2.4) 04/05/21 08:21 Troponin I 0.029 ng/ml (0-0.045) 04/04/21 08:50 Lipase 211 U/L (73-393) 04/03/21 23:37 COVID-19 Eval Order Covid19 at [facility] 04/04/21 00:58 SARS-CoV-2 (PCR) NEGATIVE (Negative) 04/04/21 00:58 Impressions Chest X-Ray 04/03/21 23:24 XR chest 2V PA/lateral CLINICAL HISTORY: Atypical chest pain COMPARISON STUDY: 03/25/2021 FINDINGS: The cardiac and mediastinal contours remain stable. There is no failure. There is no focal pulmonary consolidation. There are no pleural effusions. There is subtle as a lower septal lines most pronounced at the left lung base.[ IMPRESSION: 1. Subtle subpleural septal thickening/edema most pronounced at the left lung base. 2. No current evidence of overt failure 3. No evidence of focal pulmonary consolidation ACT 112: Negative or not required by law. Electronically signed by: Reddy Stern M.D. 04/04/2021 7:32 AM Hospital Course (1) Hypertensive urgency: Started on Coreg and chlorthalidone, cont hydralazine and lisinopril 40mg daily with improvement in blood pressure and symptoms. BP now around goal at time of discharge. (2) Chest pain: Likely related to uncontrolled HTN. Resolved. Trop trend negative. Recent Lexiscan nuclear stress test negative for inducible ischemia. Echo with no regional wall motion abnormalities. (3) Paroxysmal atrial fibrillation: cont on coreg and eliquis, maintains in sinus rhythm on telemetry. (4) Lyme disease: Recently started on a course of doxycycline for clinical Lyme disease. Serology is negative. Cont total 21 days as prescribed by outside provider. (5) Thrombocytopenia: chronic, no active bleeding (6) DVT prophylaxis: apixaban Full Dispo-to home in stable condition with close primary care followup recommended. DO Jeromy Moscosoist By [facility] guidelines, a determination that the admission or continued stay is not medically necessary has been made by a member of the Utilization Review committee and a physician for this hospital stay. Therefore, a Code 44 will be completed and the inpatient admission will be changed to outpatient. DO Yoel Total Time Total Time Spent Total Time Spent (In Minutes): 60 Discharge Plan Discharge Items Patient Disposition: Home - Self-Care Reason For Visit: CHEST PAIN Discharge Diagnosis: Hypertensive urgency Condition on Discharge: Good Activity: Resume your previous activity Non-emergency contact: Primary Care Provider Call non-emergency contact if: you have any medication questions, your symptoms worsen, your pain is not controlled, your pain is worsening and your pain is concerning for you Follow-up/Referrals: Robert Segal DO [Primary Care Provider] - (Date & Time 04/11/2021 3:00 PM Provider Robert Segal DO Department [facility] ) Diet: Heart Healthy Add Attending Provider Instructions: Please take all medications as instructed on discharge list below. As you have had multiple medication changes, please follow-up with your primary care physician at the date and time above for repeat blood pressure check and non-fasting blood work. Followup with cardiology as instructed. It was a pleasure taking care of you! Please call if you have any questions or problems. You can reach a [facility] Hospitalist on duty at [facility] 24 hours a day by calling [phone]. Take care of yourself. DO [facility] Pending Studies at Discharge: No Stand-Alone Forms: My [facility] Medications and DC Order Prescriptions: New carvedilol 3.125 mg Tablet 3.125 mg PO BID Qty: 60 RF: 0 chlorthalidone 25 mg Tablet 25 mg PO QAM Qty: 30 RF: 0 Continued celecoxib [Celebrex] 200 mg Capsule 200 mg PO QAM RF: 0 simvastatin 20 mg Tablet 20 mg PO HS RF: 0 cholecalciferol (vitamin D3) [Vitamin D3] 50 mcg (2,000 unit) Tablet 50 mcg PO QAM RF: 0 Centrum Silver Men 300-600-300 mcg Tablet 1 tab PO QAM RF: 0 Imbruvica 140 mg Tablet 280 mg PO QAM RF: 0 Eliquis 5 mg Tablet 5 mg PO BID Qty: 60 RF: 0 lisinopril 40 mg tablet 40 mg PO DAILY Qty: 30 RF: 0 hydralazine 25 mg tablet 25 mg PO TID RF: 0 amlodipine 5 mg tablet 2.5 mg PO DAILY RF: 0 Discontinued hydrochlorothiazide 25 mg tablet 25 mg PO DAILY Qty: 30 RF: 0 metoprolol succinate 25 mg tablet extended release 24 hr 12.5 mg PO BID RF: 0 Discharge Orders: Discharge Order (Routine); Ordered 04/05/21 Ordered By: Mira Diallo Admission Data Admit Date/Time: 04/04/21 01:50 Attending Provider: Mira Diallo Admit Provider: Mira Diallo Primary Care Provider: Robert Segal Other Providers: Ryan Carlson ; Raz Berry Other Interventions: Discharge Summary Assessment (RN) Last Done: 04/05/21 11:10
--- NOTE | 2021-04-05 13:25 | Communication Note ---
Date of Service: April 05, 2021 Code 44 documentation: He is a 75 yo M admitted with hypertensive urgency. BP at home was around 220/100. Has had some chest discomfort but was ruled out for any PR. He was appropriately evaluated by switch operator and attending physician. He chart and imaging studies reviewed and it was noted that he was ready to be discharged safely from the hospital with the medication changes as advised. By CMS guidelines, a determination that the admission or continued stay is not medically necessary has been made by a member of the UR committee and a physicia n for this hospital stay, therefore a Code 44 will be completed and the Inpatient admission will be changed to outpatient. Dr Dheeraj Samaniego Member UR Committee
== END 2021-04-05 11:41 | disposition home or self-care (01) ==
LOC: ED 23:10 → 2N 23:10
DX: R07.9 Chest pain, unspecified; F17.290 Nicotine dependence, other tobacco product, uncomplicated; Z20.822 Contact with and (suspected) exposure to COVID-19; D69.6 Thrombocytopenia, unspecified; A69.20 Lyme disease, unspecified; Z85.72 Personal history of non-Hodgkin lymphomas; M19.90 Unspecified osteoarthritis, unspecified site; Z79.899 Other long term (current) drug therapy; I16.0 Hypertensive urgency; Z88.8 Allergy status to other drugs, medicaments and biological substances; Z79.01 Long term (current) use of anticoagulants; I48.0 Paroxysmal atrial fibrillation; E78.5 Hyperlipidemia, unspecified